=== PATIENT | female | born 1965 | race Caucasian/White ===

== ENCOUNTER 2024-08-31 08:15 | Inpatient (IN) | payer MEDICARE, SELFPAY ==
[2024-08-30] VITALS (15 sets, daily range): BP systolic 119–158; BP diastolic 67–93; BMI 28.4; BMI 36.2
[2024-08-30 12:17] LABS: % Basophils 0.3 % (0-2); % Eosinophils 0.1 % (0-6); % Immature Granulocytes 0.4 % (0-0.5); % Lymphocytes 14.5 % (20.5-51.1); % Monocytes 5.6 % (1.7-9.3); % Neutrophils 79.1 % (42.2-75.2); Absolute Basophils 0.1 10^3/uL (0-0.2); Absolute Immature Granulocytes 0.1 10^3/uL (0-0.05); Absolute Lymphocytes 2.2 10^3/uL (1.2-3.4); Absolute Monocytes 0.9 10^3/uL (0.1-0.6); Absolute Neutrophils 12.1 10^3/uL (1.4-6.5); Hematocrit 43.1 % (37.0-47.0); Hemoglobin 15.1 g/dL (12.0-16.0); Mean Corpuscular Hgb 30.3 pg (27.0-31.0); Mean Corpuscular Volume 86.4 fL (81.0-99.0); Mean Platelet Volume 7.9 fL (7.4-10.4); Nucleated Red Blood Cells % 0 %; Platelet Count 298 10^3/uL (130-400); Red Blood Cell Count 4.99 10^6/uL (4.20-5.40); Red Cell Dist. Width 13.7 % (11.5-14.5); White Blood Cell Count 15.3 10^3/uL (4.8-10.8)
[2024-08-30 12:24] LABS: ALT (SGPT) 30 U/L (0-35); AST (SGOT) 48 U/L (14-36); Albumin 4.5 g/dl (3.5-5.0); Alkaline Phosphatase 149 U/L (38-126); Blood Urea Nitrogen 17 mg/dl (7-17); Calcium 9.7 mg/dl (8.4-10.2); Carbon Dioxide 27 mmol/L (22-30); Chloride 105 mmol/L (98-107); Glucose 156 mg/dl (70-99); Potassium 3.9 mmol/L (3.5-5.1); Sodium 143 mmol/L (135-145); Total Bilirubin 0.5 mg/dl (0.2-1.3); Total Protein 7.5 g/dl (6.3-8.2); eGFR > 60.00
[2024-08-30 12:25] LABS: Alcohol 10 mg/dl
[2024-08-30] MEDS: NSS 1000 IV ×3 (12:35→19:54)
[2024-08-30 12:56] LABS: Venous Blood Gas HCO3 27.1 mmol/L (22-27); Venous Blood Gas O2 Sat % 98.4 %; Venous Blood Gas pCO2 39 mmHg (35-48); Venous Blood Gas pH 7.45 (7.32-7.43); Venous Blood Gas pO2 124 mmHg (30-50)
--- NOTE | 2024-08-30 12:58 | ED.GENMED ---
History of Present Illness
<Harshal Bashir, DO - Last Filed: 08/30/24 12:59>
General
Chief Complaint: Change in Mental Status
Time Seen by Provider: 08/30/24 12:11
<Kat Miles PA-C - Last Filed: 08/30/24 18:22>
General
Source: ambulance crew
Exam Limitations: altered mental status
History of Present Illness
History of Present Illness:
59yoF with a history of alcohol abuse, anxiety, and depression presenting via EMS for evaluation of altered mental status. Patient currently resides in a recovery house since October 2023. She is altered on arrival and history is obtained from staff
members at the recovery house. Patient apparently had a fall a week ago while at work and has been acting weird over the past week. She called out of work several times last due to vomiting and diarrhea. Staff members were concerned that she may
be drinking again. A staff member went to her room this morning to check on her and found her laying supine on the grounds with a blank stare and unresponsiveness. They found a bottle of empty rubbing alcohol under her bed as well as several empty
bottles of mouthwash in her room. Patient was apparently speaking with another resident this morning and was able to have a conversation but kept saying yes to all questions.
Past History
<Harshal Bashir, DO - Last Filed: 08/30/24 12:59>
Past History
ED Past Medical History: HTN, Hypothyroidism and Other (gout)
Phy Exam
<Kat Miles PA-C - Last Filed: 08/30/24 18:22>
General Physical Exam
General Presentation: no apparent distress
General Skin: warm and dry
General Habitus: normal
ENT Exam
ENT Exam: normocephalic
Eye Exam
Eye Exam: PERRL
Cardiovascular Exam
Cardiovascular Exam: tachycardia
Pulmonary Exam
Pulmonary Exam: lungs clear, no respiratory distress, no rales, no crackles and no rhonchi
Gastrointestinal Exam
Gastrointestinal Exam: non tender, soft and non distended
Neurological Exam
Neurological Exam: other (Opens eyes to voice and makes eye contact. Groans but does not answer questions. Does not follow commands. )
Skin Exam
Skin Exam: warm/dry
Course
<Harshal Bashir, DO - Last Filed: 08/30/24 12:59>
Orders/Labs/Results
Orders:
Orders
08/30/24 11:57
Electrocardiogram (*1) Urgent
Reason for Study: Fatigue / Weakness
EKG- Treatment ONCE
08/30/24 11:58
Alcohol Urgent
Complete Blood Count/With Diff Urgent
Comprehensive Metabolic Panel Urgent
Creatine Phosphokinase Urgent
Comment: ADD ON
Fentanyl, Urine Urgent
Magnesium Urgent
Comment: ADD ON
Osmolality, Random Urine Urgent
Date Specimen was Collected: 08/30/24
Time Specimen was Collected: 11:57
Comment: ADD ON
TSH Urgent
Comment: ADD ON
Urinalysis Urgent
Date Specimen was Collected: 08/30/24
Time Specimen was Collected: 11:57
Urine Drug Abuse Screen Urgent
Date Specimen was Collected: 08/30/24
Time Specimen was Collected: 11:57
Urine Microscopic Urgent
Date Specimen was Collected: 08/30/24
Time Specimen was Collected: 11:57
08/30/24 12:17
CT Head W/o Iv Contrast Urgent
Comment:
Reason For Exam: AMS
08/30/24 12:18
Add On- LAB Urgent
Tests Added?: TSH, magnesium
08/30/24 12:19
Cardiac Monitoring- Treatment ONCE
CR Chest Portable - 1 View Urgent
Comment:
Reason For Exam: AMS
Reason Study Needs to be Portable: Patient Unstable
08/30/24 12:20
0.9% Sodium Chloride 1000 ml [Nss] 1,000 ml IV BOLUS
08/30/24 12:28
Add On- LAB Urgent
Tests Added?: CK
Add On- LAB Urgent
Tests Added?: urinalysis
08/30/24 12:34
CT Cervical Spine W/o Iv Contr Urgent
Comment:
Reason For Exam: AMS
CT Pe/abd/pel W Urgent
Comment:
Reason For Exam: Tachycardia, AMS, vomiting
08/30/24 12:36
Ammonia Urgent
Lactate Level [Lactic Acid] Urgent
Salicylate Urgent
Serum Osmolality Urgent
Comment: ADD ON
Troponin I Urgent
Tylenol [Acetaminophen] Urgent
Venous Blood Gas Urgent
%Oxygen/Room Air: room air
Blood Culture Q30M
LUCAS Source: Blood/Venous
Specimen Description:
Blood Culture Q30M
LUCAS Source: Blood/Venous
Specimen Description:
08/30/24 12:45
Add On- LAB Urgent
Tests Added?: Urinalysis
08/30/24 14:20
Add On- LAB Urgent
Tests Added?: Urine osmo
Add On- LAB Urgent
Tests Added?: serum osmo
08/30/24 14:22
Acetone [B-Hydroxybutyrate] Urgent
08/30/24 14:55
Admit/Transfer Patient As Directed
Co-Sign Provider:
Level of Care: Observation services
Assign to:: Telemetry
Physician / Group: Yani Sigala
Diagnosis: change in mental status
Reason for Telemetry: Arrhythmia
Date to Stop Telemetry: 09/02/24
Time to Stop Telemetry: 11:00
PRN Pain Medication Management As Directed
May give lesser potent ordered pain med per pt: Yes
preference::
Protocol:: Medication orders for pain may be administered in a
manner that supports deferring to patient preference
when the pt is:
- Requesting an ordered lesser potent pain medication.
Least to most potent pain medications are defined
as: acetaminophen < NSAID < tramadol < opioids
(morphine, oxycodone, hydromorphone).
- Requesting a lesser dose of the same medication IF
ORDERED.
- Requesting a less intrusive route of administration
if both routes are prescribed by the provider (PO <
IV).
08/30/24 14:56
Code Status As Directed
Resuscitation Status: Full Code
08/30/24 14:58
0.9% Sodium Chloride 1000 ml [Nss] 1,000 ml IV BOLUS
09/02/24 11:00
DC Protocol for Telemetry ONCE
Abnormal Lab Results
08/30/24 08/30/24
11:58 12:36
WBC 15.3 H 10^3/uL
(4.8-10.8)
Abs Immat Gran (auto) 0.1 H 10^3/uL
(0-0.05)
Absolute Neuts (auto) 12.1 H 10^3/uL
(1.4-6.5)
Absolute Monos (auto) 0.9 H 10^3/uL
(0.1-0.6)
Neutrophils % 79.1 H %
(42.2-75.2)
Lymphocytes % 14.5 L %
(20.5-51.1)
VBG pH 7.45 H
(7.32-7.43)
VBG pO2 124 H mmHg
(30-50)
VBG HCO3 27.1 H mmol/L
(22-27)
Glucose 156 H mg/dl
(70-99)
Serum Osmolality 343 H mOsm/kg
(275-300)
AST 48 H U/L
(14-36)
Alkaline Phosphatase 149 H U/L
(38-126)
Ammonia < 9 L umol/L
(9-30)
Creatine Kinase 856 H U/L
(30-135)
Urine Ketones 3+ A
(Negative)
Urine Occult Blood 3+ A
(Negative)
Urine Bacteria Few A
(Negative)
Urine Albumin 3+ A
(Neg - Trace)
Salicylates < 1.0 L mg/dl
(2.0-20.0)
Acetaminophen < 10 L ug/ml
(10-30)
Ur Tricyclics Screen Positive H
(Negative)
U Methamphetamines Scrn Positive H
(Negative)
08/30/24 11:58
08/30/24 11:58
Vital Signs
Initial and Last Documented VS:
Initial Vital Signs
Pulse Resp Pulse Ox
123 11 97
08/30/24 11:59 08/30/24 11:59 08/30/24 11:59
Last Documented Vital Signs
Temp Pulse Resp BP Pulse Ox
98.6 F 142 22 119/93 97
08/30/24 18:01 08/30/24 18:01 08/30/24 18:01 08/30/24 18:01 08/30/24 18:01
<Kat Miles PA-C - Last Filed: 08/30/24 18:22>
Orders/Labs/Results
Orders:
Orders
08/30/24 11:57
Electrocardiogram (*1) Urgent
Reason for Study: Fatigue / Weakness
EKG- Treatment ONCE
08/30/24 11:58
Alcohol Urgent
Complete Blood Count/With Diff Urgent
Comprehensive Metabolic Panel Urgent
Creatine Phosphokinase Urgent
Comment: ADD ON
Fentanyl, Urine Urgent
Magnesium Urgent
Comment: ADD ON
Osmolality, Random Urine Urgent
Date Specimen was Collected: 08/30/24
Time Specimen was Collected: 11:57
Comment: ADD ON
TSH Urgent
Comment: ADD ON
Urinalysis Urgent
Date Specimen was Collected: 08/30/24
Time Specimen was Collected: 11:57
Urine Drug Abuse Screen Urgent
Date Specimen was Collected: 08/30/24
Time Specimen was Collected: 11:57
Urine Microscopic Urgent
Date Specimen was Collected: 08/30/24
Time Specimen was Collected: 11:57
08/30/24 12:17
CT Head W/o Iv Contrast Urgent
Comment:
Reason For Exam: AMS
08/30/24 12:18
Add On- LAB Urgent
Tests Added?: TSH, magnesium
08/30/24 12:19
Cardiac Monitoring- Treatment ONCE
CR Chest Portable - 1 View Urgent
Comment:
Reason For Exam: AMS
Reason Study Needs to be Portable: Patient Unstable
08/30/24 12:20
0.9% Sodium Chloride 1000 ml [Nss] 1,000 ml IV BOLUS
08/30/24 12:28
Add On- LAB Urgent
Tests Added?: CK
Add On- LAB Urgent
Tests Added?: urinalysis
08/30/24 12:34
CT Cervical Spine W/o Iv Contr Urgent
Comment:
Reason For Exam: AMS
CT Pe/abd/pel W Urgent
Comment:
Reason For Exam: Tachycardia, AMS, vomiting
08/30/24 12:36
Ammonia Urgent
Lactate Level [Lactic Acid] Urgent
Salicylate Urgent
Serum Osmolality Urgent
Comment: ADD ON
Troponin I Urgent
Tylenol [Acetaminophen] Urgent
Venous Blood Gas Urgent
%Oxygen/Room Air: room air
Blood Culture Q30M
LUCAS Source: Blood/Venous
Specimen Description:
Blood Culture Q30M
LUCAS Source: Blood/Venous
Specimen Description:
08/30/24 12:45
Add On- LAB Urgent
Tests Added?: Urinalysis
08/30/24 14:20
Add On- LAB Urgent
Tests Added?: Urine osmo
Add On- LAB Urgent
Tests Added?: serum osmo
08/30/24 14:22
Acetone [B-Hydroxybutyrate] Urgent
08/30/24 14:55
Admit/Transfer Patient As Directed
Co-Sign Provider:
Level of Care: Observation services
Assign to:: Telemetry
Physician / Group: Yani Sigala
Diagnosis: change in mental status
Reason for Telemetry: Arrhythmia
Date to Stop Telemetry: 09/02/24
Time to Stop Telemetry: 11:00
PRN Pain Medication Management As Directed
May give lesser potent ordered pain med per pt: Yes
preference::
Protocol:: Medication orders for pain may be administered in a
manner that supports deferring to patient preference
when the pt is:
- Requesting an ordered lesser potent pain medication.
Least to most potent pain medications are defined
as: acetaminophen < NSAID < tramadol < opioids
(morphine, oxycodone, hydromorphone).
- Requesting a lesser dose of the same medication IF
ORDERED.
- Requesting a less intrusive route of administration
if both routes are prescribed by the provider (PO <
IV).
08/30/24 14:56
Code Status As Directed
Resuscitation Status: Full Code
08/30/24 14:58
0.9% Sodium Chloride 1000 ml [Nss] 1,000 ml IV BOLUS
09/02/24 11:00
DC Protocol for Telemetry ONCE
Abnormal Lab Results
08/30/24 08/30/24
11:58 12:36
WBC 15.3 H 10^3/uL
(4.8-10.8)
Abs Immat Gran (auto) 0.1 H 10^3/uL
(0-0.05)
Absolute Neuts (auto) 12.1 H 10^3/uL
(1.4-6.5)
Absolute Monos (auto) 0.9 H 10^3/uL
(0.1-0.6)
Neutrophils % 79.1 H %
(42.2-75.2)
Lymphocytes % 14.5 L %
(20.5-51.1)
VBG pH 7.45 H
(7.32-7.43)
VBG pO2 124 H mmHg
(30-50)
VBG HCO3 27.1 H mmol/L
(22-27)
Glucose 156 H mg/dl
(70-99)
Serum Osmolality 343 H mOsm/kg
(275-300)
AST 48 H U/L
(14-36)
Alkaline Phosphatase 149 H U/L
(38-126)
Ammonia < 9 L umol/L
(9-30)
Creatine Kinase 856 H U/L
(30-135)
Urine Ketones 3+ A
(Negative)
Urine Occult Blood 3+ A
(Negative)
Urine Bacteria Few A
(Negative)
Urine Albumin 3+ A
(Neg - Trace)
Salicylates < 1.0 L mg/dl
(2.0-20.0)
Acetaminophen < 10 L ug/ml
(10-30)
Ur Tricyclics Screen Positive H
(Negative)
U Methamphetamines Scrn Positive H
(Negative)
08/30/24 11:58
08/30/24 11:58
Vital Signs
Initial and Last Documented VS:
Initial Vital Signs
Pulse Resp Pulse Ox
123 11 97
08/30/24 11:59 08/30/24 11:59 08/30/24 11:59
Last Documented Vital Signs
Temp Pulse Resp BP Pulse Ox
98.6 F 142 22 119/93 97
08/30/24 18:01 08/30/24 18:01 08/30/24 18:01 08/30/24 18:01 08/30/24 18:01
<Kat Miles PA-C - Last Filed: 08/30/24 18:22>
MDM/Problems Addressed
Differential Diagnosis Includes:
59yoF here for AMS. Patient currently resides in a recovery center. Staff found her unresponsive on the ground this morning. There was several bottles of empty mouthwash and rubbing alcohol in her room. She is tachycardic on exam with HR in the
120s. Sinus tachycardia on the monitor. Patient opens eyes and makes eye contact. No verbal response other than groaning and she does not follow commands. Differential diagnosis includes but is not limited to: Alcohol intoxication, alcohol
withdrawal, infectious process, CVA
Initial ED plan: Check broad including cardiac labs, CK, EtOH level, salicylate/Tylenol level, UDS, UA, EKG, and lewis scan. IV fluid bolus.
<Kat Miles PA-C - Last Filed: 08/30/24 18:22>
*EKG
Interpreted by ED Provider?: Yes
EKG Intrepretation Date: 08/30/24
Heart Rate: 124
Rate: tachycardiac
Rhythm: sinus and PVC's
[place]: left axis deviation
QRS Pattern: normal QRS
Ischemia: no ischemia
*Critical Care Note
Total Time (30-74mins, 75-104mins- exclusive of procedures): Not Applicable
<Kat Miles PA-C - Last Filed: 08/30/24 18:22>
Update Note
Update Note:
Imaging negative for acute findings. UDS is positive for TCAs and methamphetamines. EtOH level is 10. CK mildly elevated at 850. Leukocytosis noted with a white count of 15 which is nonspecific. Patient is more awake on reassessment and now
answers yes to questions but still does not follow commands. Will admit for further evaluation and management.
ED Attending Note
<Harshal Bashir DO - Last Filed: 08/30/24 12:59>
ED Attending Note
Patient seen and examined by attending physician: Yes
I performed the substantive portion of visit, reviewed & personally made and approve the management plan that is documented in note by myself or TEJ.: Yes
ED Attending Note:
I have seen and evaluated the patient with a [id number] encounter. I have spoken to the advance practicer provider and involved in the medical history, the physical exam, medical decision making.
Evaluation and management service: agree unless noted differently below.
Results interpretation: agree unless noted differently below.
Focused HPI: 59-year-old female presenting by EMS for altered mental status. She comes [facility]. Patient is a poor historian and altered
Physical exam: Tachycardic. Confused and altered. Not following commands
Medical Decision Making: Will obtain CT head and basic blood work. Patient found to have alcohol in her system. There is a potential for withdrawal. Patient will ultimately require admission
-
Portions of this chart may have been created with voice recognition software.� Occasional wrong word or��sound alike� substitutions may have occurred due to the inherent limitations of voice recognition software.
Discharge Plan
Departure
Patient Disposition: Admit
Date of Disposition: 08/30/24
Time of Disposition: 13:57
Presentation/result/management discussed w/ accepting MD/DO: Hospitalist
Discharge Problem:
Altered mental status
Interventions
Interventions:
*Risk Screen - Suicide Last Done: 08/30/24 12:11
*General Assessment Last Done: 08/30/24 12:11
*Neglect/Abuse Screening Last Done: 08/30/24 12:11
*ED- Fall Risk Assessment Last Done: 08/30/24 12:11
*ED COVID-19 Vaccine History Last Done: 08/30/24 12:11
*Nursing Disposition Last Done: 08/30/24 17:28
ED- Pulmonary Assessment Last Done: 08/30/24 12:11
ED-Psychological Assessment Last Done: 08/30/24 12:11
ED- Neurological Assessment Last Done: 08/30/24 12:11
ED- Cardiac Assessment Last Done: 08/30/24 12:11
ED Swallowing Screen Last Done: 08/30/24 12:11
Discharge Date and Time
Discharge Date/Time: 08/30/24 18:18
[2024-08-30 13:02] LABS: Amphetamines Negative (Negative); Barbiturates Negative (Negative); Benzodiazepines Negative (Negative); Buprenorphine Negative (Negative); Cocaine Negative (Negative); Marijuana Negative (Negative); Methadone Negative (Negative); Methamphetamines Positive (Negative); Opiates Negative (Negative); Phencyclidine Negative (Negative); Tricyclic Antidepressants Positive (Negative)
[2024-08-30 13:02] LABS: Ammonia < 9 umol/L (9-30); Lactic Acid 1.3 mmol/L (0.7-2.0)
[2024-08-30 13:03] LABS: Creatine Phosphokinase 856 U/L (30-135); Magnesium 1.6 mg/dl (1.6-2.3)
[2024-08-30 13:03] LABS: Acetaminophen < 10 ug/ml (10-30); Salicylate < 1.0 mg/dl (2.0-20.0)
[2024-08-30 13:08] LABS: Urine Albumin 3+ (Neg - Trace); Urine Bilirubin Negative (Negative); Urine Character Clear (Clear); Urine Color Yellow; Urine Glucose Negative (Negative); Urine Ketone 3+ (Negative); Urine Leukocyte Negative (Negative); Urine Nitrite Negative (Negative); Urine Occult Blood 3+ (Negative); Urine Urobilinogen Negative (Neg - 1+)
[2024-08-30 13:14] LABS: Troponin I 0.017 ng/ml
[2024-08-30 13:18] LABS: Urine Bacteria Few (Negative); Urine Hyaline Cast 0-2 /LPF (0-2); Urine Red Blood Cell 0-2 /HPF (0-2)
[2024-08-30 13:25] LABS: Fentanyl, Urine Negative (Negative)
--- NOTE | 2024-08-30 14:00 | EDRN ---
this RN noticed that the pts Sp02 dipped to 91% on RA, this RN notified the provider and placed the pt on 2L NC, Sp02 is currently 98%
--- NOTE | 2024-08-30 14:07 | HPS.HSE ---
Addendum entered and electronically signed by Yani Sigala DO 08/30/24 16:23:
I have seen and examined the patient. I have reviewed the history and physical and assessment and plan of care extensively with La Nean and I agree with the history and physical and assessment and plan of care as per below. The patient presents
altered and therefore is a difficult historian. She answers yes to all questions. She is a 59-year-old woman with past medical history significant for alcohol dependence and drug abuse currently living in a [facility]hab [facility], depression,
anxiety who presented to the emergency department secondary to altered mental status. She was found with empty bottles of isopropyl alcohol, and it is unclear if she was drinking this. It is all suspect suspected she may have been drinking ethyl
alcohol. Her urine drug screen is positive for TCA and methamphetamine and is unclear whether she has been using these medications.
In the emergency department she is hemodynamically stable with her blood pressure however is sinus tachycardia in the 110s to 120s.
Cardiovascular regular rate, tachycardia
she has no focal neurologic deficits.
Abdomen is soft nontender nondistended normoactive bowel sounds
Lungs are clear to auscultation bilaterally no wheezes rales rhonchi
Labs are remarkable for WBC of 15.3, glucose 156 lactate normal at 1.3, AST 48 ALT 30
Imaging reviewed is without acute process
# Altered mental status suspected due to alcohol intoxication and unknown drugs, possibly methamphetamine, though it is not clear whether this is isopropyl versus ethyl alcohol, her labs do not suggest isopropyl alcohol intoxication at this time.
Her EKG is notable for QTc of 453, her pH is 7.45
Admit to telemetry monitoring
-Continue IV fluid
-Continue close monitoring of laboratory
-Continue close monitoring of neurologic status
-Initiate thiamine and folate and alcohol withdrawal protocol
# Depression and anxiety
Continue home medications when able
Original Note:
Family Physician
-
Family Physician: NO INTERVIEW UNKNOWN
Chief Complaint
-
change in mental status
History of Present Illness
Patient is a 59-year-old female with past medical history significant for alcohol dependency, depression, anxiety and gout who presented to [facility] ED for evaluation of change in mental status. Patient unable to offer any history with current mental
status. HPI obtained from ED documentation. Patient resides in a recovery house since October 2023. This morning was found laying supine on the floor in bedroom with blank stare and was unresponsive to staff. Staff found an empty bottle of rubbing
alcohol under patients bed as well as several empty mouthwash bottles. Patient was speaking with another resident earlier in day and was only answering yes to all questions. Staff and other residents report patient has been acting strangely the past
week following a fall last week. She has reportedly called out of work multiple times since fall reporting vomiting and diarrhea, they had concerns she may have started drinking again. At assessment patient awake and only answers yes to anything
asked, does not follow commands from provider.
Medical History
Past Medical History
Past Medical History: Reports Other
Additional Past Medical History:
alcohol dependency
depression
anxiety
gout
Past Surgical History: Reports None (unable to obtain )
Social History
Unable to obtain full social history at this time due to: Other (altered mental status unable to obtain, has hx of alcohol abuse )
Family History
Family History: Unable to Obtain (altered mental status )
Allergies / Home Medications
Allergies reflects when Allergies were last updated in [facility].
Home Medications with original date entered in [facility]
Allergy/Medication List:
Allergies
Allergy/AdvReac Type Severity Reaction Status Date / Time
No Known Allergies Allergy Verified 03/26/23 07:35
Home Medications
clonidine HCl 0.1 mg tablet 0.1 mg PO BID 08/30/24
gabapentin 400 mg capsule 400 mg PO TID 08/30/24
naltrexone microspheres 380 mg intramuscular suspension,extended release (Vivitrol) 380 mg IM QMONTH 08/30/24
prazosin 2 mg capsule 2 mg PO HS 08/30/24
quetiapine 300 mg tablet 300 mg PO HS 08/30/24
ropinirole 2 mg tablet 2 mg PO HS 08/30/24
Review of Systems
-
Unable to obtain full review of systems at this time due to: Other (altered mental status )
Physical Exam
Vital Signs
Vital Signs
Temp Pulse Resp BP Pulse Ox
98.4 F 120 26 141/81 93
08/30/24 12:11 08/30/24 12:11 08/30/24 12:11 08/30/24 12:11 08/30/24 12:11
Physical Exam
General: Well Developed, Well Nourished, No Apparent Distress and Morbidly Obese
HEENT: NormoCephalic, Moist mucous membranes, Atraumatic, [place] Conjunctivae, Nose Appears Normal and Ears Appear Normal
Respiratory: Clear
Cardiac: S1/S2, Regular Rhythm and Tachycardia
Breast: Deferred by me
GI: Soft, Non Tender, Non Distended and Normal Bowel Sounds
Rectal: Deferred by Provider
Genito-urinary: Deferred by me
Musculoskeletal: No Clubbing, No Cyanosis and No Edema
Skin: IV/Catheter Site
Neuro: Awake and Other (does not follow commands )
Psych: Confused and Other (altered mental status )
Laboratory Results
-
08/30/24 11:58
08/30/24 11:58
Laboratory Results
Lactic Acid 1.3 mmol/L (0.7-2.0) 08/30/24 12:36
Total Bilirubin 0.5 mg/dl (0.2-1.3) 08/30/24 11:58
AST 48 U/L (14-36) H 08/30/24 11:58
ALT 30 U/L (0-35) 08/30/24 11:58
Alkaline Phosphatase 149 U/L (38-126) H 08/30/24 11:58
Troponin I 0.017 ng/ml 08/30/24 12:36
Data Reviewed
-
Diagnostic Radiology: Report Reviewed by me (CXR: 1. Perceived increase in pulmonary vasculature is likely related to suboptimal inspiration. Please correlate to exclude congestive heart failure. 2. There is malposition of the right shoulder which
may be positional. Please correlate with any right shoulder pain)
CT Scan: Report Reviewed by me (C-spine, Abd/Pel, Head (see reports))
Lab Data: Labs Reviewed by me (CK 856)
Impression/Plan
-
IMPRESSION/PLAN:
#change in mental status
#alcohol dependency
CK 856
Alcohol 10
CXR: 1. Perceived increase in pulmonary vasculature is likely related to suboptimal inspiration. Please correlate to exclude congestive heart failure.
2. There is malposition of the right shoulder which may be positional. Please correlate with any right shoulder pain
C-spine CT: There is degenerative disc disease at C5/6 and C6/7. There is no evidence of fracture
Abd/Pel CT: 1. There is no pulmonary embolism centrally. Segmental arteries are more difficult to assess due to limitations of contrast.
2. There is no evidence of a pulmonary mass or consolidation
3. There is fatty infiltration of the liver
4. There is diverticulosis but no evidence of diverticulitis
Head: Unremarkable CT of the brain
- Admit to telemetry
- IVF
#potential alcohol withdraw
Alcohol 10
- MSAS protocol
#alcohol dependency
#depression
#anxiety
- continue clonidine, Vivitrol, prazosin and quetiapine
#gout
Code status: full code
DVT Prophylaxis: Lovenox Sq
[2024-08-30 14:56] LABS: Osmolality Serum 343 mOsm/kg (275-300)
[2024-08-30 15:03] LABS: Osmolality Urine 746 mOsm/kg (300-900)
[2024-08-30 15:12] LABS: TSH 2.89 uIU/ml (0.47-4.68)
[2024-08-30] MEDS: MAGNESIUM SULFATE 50 IV (16:10)
--- NOTE | 2024-08-30 17:52 | EDRN ---
this RN called the receiving unit and notified them that paper report was going to be tubed up
[2024-08-30] MEDS: ATIVAN 2 MG IV ×3 (19:39→23:17)
[2024-08-30] MEDS: NSS (PRESERVATIVE FREE) 1 ML IV ×3 (19:40→23:16)
[2024-08-30] MEDS: LOVENOX 40 MG SC (20:33)
[2024-08-30] MEDS: REQUIP 2 MG PO (20:34)
[2024-08-30] MEDS: NEURONTIN 400 MG PO (20:34)
[2024-08-30] MEDS: THIAMINE INJECTION 200 MG IV (20:34)
[2024-08-30] MEDS: SEROQUEL 300 MG PO (20:34)
[2024-08-30] MEDS: CATAPRES 0.1 MG PO (20:35)
[2024-08-30] MEDS: MINIPRESS 2 MG PO (20:35)
[2024-08-30 22:09] LABS: B-Hydroxybutyrate 1.06 mmol/L (0.02-0.27)
[2024-08-30] MEDS: NEURONTIN PO (23:30)
--- NOTE | 2024-08-30 23:39 | W.PN.UPDATE ---
Update Note
Progress Note Update
RN communicated, patient MSAS score 14. Patient seen and evaluated. noted lethargic, restless, grunting, tachycardic, diaphoretic. Patient been receiving 2mg per Msas score, last dose few minutes ago. HR noted to be in 140's, BP 140's/70's EKG
noted, stat labs, Metoprolol 5mg IV x1 now. Transfer to IMU for closer observation.
[2024-08-30] MEDS: LOPRESSOR 5 MG IV (23:57)
[2024-08-31] VITALS (27 sets, daily range): BP systolic 109–157; BP diastolic 70–102; BMI 36.3
[2024-08-31 00:35] LABS: Hematocrit 39.7 % (37.0-47.0); Hemoglobin 13.6 g/dL (12.0-16.0); Mean Corp Hgb Conc. 34.3 g/dL (33.0-37.0); Mean Corpuscular Hgb 30.5 pg (27.0-31.0); Mean Platelet Volume 8.1 fL (7.4-10.4); Platelet Count 150 10^3/uL (130-400); Red Blood Cell Count 4.46 10^6/uL (4.20-5.40); Red Cell Dist. Width 14.4 % (11.5-14.5)
[2024-08-31] MEDS: NSS (PRESERVATIVE FREE) 1 ML IV (00:54)
[2024-08-31] MEDS: ATIVAN 2 MG IV ×4 (00:54→19:09)
--- NOTE | 2024-08-31 01:21 | W.PN.UPDATE ---
Update Note
Progress Note Update
Reported by the nursing staff that the patient is severely agitated and staff not able to reorient. Patient is screaming, keep rolling back and forth in bed and very restless. Patient received multiple doses of PRN Ativan 2mg q1hr PRN per protocol
but not effective. Phenobarbital added per protocol and Soft restraint applied for the patient`s safety. Patient aggression is increasing more, trying to be out of restraint continuously while screaming, staff not able to reorient. Will transfer the
patient to ICU level for agitation and sedation as needed. Discussed with the admitting physician.
[2024-08-31 01:46] LABS: Blood Urea Nitrogen 13 mg/dl (7-17); Calcium 8.5 mg/dl (8.4-10.2); Carbon Dioxide 23 mmol/L (22-30); Chloride 112 mmol/L (98-107); Estimated Creatinine Clearance 103 ml/min; Glucose 152 mg/dl (70-99); Magnesium 1.9 mg/dl (1.6-2.3); Potassium 4.1 mmol/L (3.5-5.1); Sodium 144 mmol/L (135-145); eGFR > 60.00
[2024-08-31] MEDS: PRECEDEX 100 IV ×4 (01:50→23:26)
[2024-08-31] MEDS: PHENOBARBITAL 104 MG IV (02:12)
--- NOTE | 2024-08-31 02:16 | PTCARENOTE ---
Received pt to ICU room 3371 from [facility] at 0041. Pt IMU level of care. Upon arrival, pt agitated, A/O to self only, restless, unable to reorient to reality. MSAS 14, medicated with lorazepam accordingly, see EMAR/MSAS flowsheet. Pt continued like
this, rolling back and forth in the bed, thrashing, kicking the footboard, screaming at the top of her lungs. House provider Evan RAYGOZA notified via [employer] about pt's behavior at 0107 and she came to bedside to assess pt/situation,
ordered Phenobarbital and 4 pt soft restraints. Ultimately pt was made ICU level of care by approximately 0145, Precedex ordered and started at around 0150. Another dose of 2mg Ativan given for MSAS of 15 (see EMAR). Phenobarb arrived from pharmacy
at around 0212 and was immediately started. Pt continues to scream, thrash, kick and is unable to reorient to reality. ST on monitor, 130s-150s with frequent PVCs. Maintaining SpO2 96% on RA.
--- NOTE | 2024-08-31 03:04 | PTCARENOTE ---
Pt received 3rd dose of 2mg Ativan since arrival to ICU at around 0255 and Precedex titrated up to 0.6mcg/kg/min. Up to that point pt had continued to kick, thrash and yell out. Left ankle soft restraint was broken from pt kicking violently. No skin
breakdown noted to LLE on assessment. At around 0300 pt was quiet and still and had her eyes closed. HR down to 120s. Pt started to desat (as low as 78%). Pt placed on 6LNC and repositioned and recovered to 94%. RR 24, BP WNL. Pt still with frequent
ectopy, at one point pt noted to be in trigeminy but now PVCs are more sporadic. Bed alarm activated. MSAS protocol ongoing.
[2024-08-31] MEDS: NSS 1000 IV ×3 (03:43→19:46)
[2024-08-31 05:26] LABS: Blood Urea Nitrogen 14 mg/dl (7-17); Carbon Dioxide 25 mmol/L (22-30); Chloride 112 mmol/L (98-107); Estimated Creatinine Clearance 103 ml/min; GGTP 44 U/L (12-43); Glucose 140 mg/dl (70-99); Phosphorus 2.8 mg/dl (2.5-4.5); Sodium 143 mmol/L (135-145); eGFR > 60.00
[2024-08-31] MEDS: ATIVAN 1 MG IV ×5 (06:18→20:10)
[2024-08-31 06:51] LABS: Hematocrit 33.8 % (37.0-47.0); Hemoglobin 11.6 g/dL (12.0-16.0); Mean Corp Hgb Conc. 34.3 g/dL (33.0-37.0); Mean Corpuscular Hgb 30.2 pg (27.0-31.0); Mean Platelet Volume 8.1 fL (7.4-10.4); Platelet Count 182 10^3/uL (130-400); Red Blood Cell Count 3.84 10^6/uL (4.20-5.40); Red Cell Dist. Width 14.3 % (11.5-14.5); White Blood Cell Count 7.4 10^3/uL (4.8-10.8)
--- NOTE | 2024-08-31 07:19 | CON.INTV ---
Addendum entered and electronically signed by Kathie Monte DO 08/31/24 16:41:
Doing well now, more appropriate
Will change taper to lower PO dose to start, as her risk seems less with her ingestion type/quantity
Wean precedex to off, reviewed with RN
Original Note:
Consultation
Consultation Request
Date/Time Consultation Requested: 08/31/24
Date/Time Consultation Performed: 08/31/24
Performing Provider: Lavell
Reason for Consultation: ICU
Medical History
-
History of Present Illness:
Patient is a 59-year-old female with previous history of alcohol dependence, drug abuse living in an alcohol rehab pathway house, depression/anxiety presenting to ER for altered mental status. She was found with empty bottles of isopropyl
alcohol (rubbing alcohol) and ethyl alcohol (mouthwash) bottles. Urine drug screen positive for TCA and methamphetamine. There is a calculated high serum osmolar gap. She is admitted to ICU for suspected alcohol withdrawal.
Past Medical History
Past Medical History: Other (see list below)
Family History
Family History: Unable to Obtain
Allergies / Home Medications
Allergies
Allergy/AdvReac Type Severity Reaction Status Date / Time
No Known Allergies Allergy Verified 03/26/23 07:35
Home Medications
�Medication �Instructions �Recorded �Confirmed �Last Taken �Type
clonidine HCl 0.1 mg tablet 0.1 mg PO BID 08/30/24 08/30/24 Unknown History
gabapentin 400 mg capsule 400 mg PO TID 08/30/24 08/30/24 Unknown History
naltrexone microspheres 380 mg 380 mg IM QMONTH 08/30/24 08/30/24 Unknown History
intramuscular suspension,extended
release (Vivitrol)
prazosin 2 mg capsule 2 mg PO HS 08/30/24 08/30/24 Unknown History
quetiapine 300 mg tablet 300 mg PO HS 08/30/24 08/30/24 Unknown History
ropinirole 2 mg tablet 2 mg PO HS 08/30/24 08/30/24 Unknown History
Review of Systems
-
Unable to Obtain full review of systems at this time due to: Acuity
Vitals / Labs / Diagnostic Testing
Vital Signs
Temp Pulse Resp BP Pulse Ox
97.9 F 122 37 145/89 98
08/31/24 00:53 08/31/24 06:00 08/31/24 06:00 08/31/24 06:00 08/31/24 06:00
Lab Data
08/31/24 04:42
08/31/24 04:42
Diagnostic Testing:
Physical Exam
-
HEENT: Normocephalic, Anicteric and Moist Mucous Membranes
Cardiovascular: S1/S2 and Regular Rhythm
Respiratory: Clear, Non-Labored Respirations and Other (snoring)
GI: Soft, Non Distended and Non Tender
Neurology: No Motor Deficits and Other (sedated/lethargic)
Skin: Warm, Dry and Good Color
General: Comfortable and Other (NAD)
Assessment
-
Patient is a 59-year-old female with previous history of alcohol dependence, drug abuse living in an alcohol rehab pathway house, depression/anxiety presenting to ER for altered mental status. She was found with empty bottles of isopropyl
alcohol (rubbing alcohol) and ethyl alcohol (mouthwash) bottles. Urine drug screen positive for TCA and methamphetamine. There is a calculated high serum osmolar gap. She is admitted to ICU for suspected alcohol withdrawal.
Acute isopropyl and ethyl alcohol intoxication/abuse
Serum osmolar gap
TME 2/2 ingestion, mild ETOH w/d
Hyperglycemia
UDS positive for TCAs and methamphetamine
Ketonuria with beta hydroxybutyrate positive-likely alcoholic ketoacidosis
Conditions present prior to admission
Alcohol abuse history
Depression/anxiety
Gout
Obesity, BMI 36
Hypothyroidism
Hypertension
Restless leg syndrome
Plan
There is current signs of metabolic encephalopathy/MS changes
ETOH use history, but patient ingested isopropyl and ethyl alcohol through rubbing alcohol and mouthwash
Serum Osm is raised significantly, ETOH level is low
Not showing profound acidosis
Not sure if phenobarb taper can be used for isopropyl ingestion, ethyl w/d will likely be mild
IV hydration is recommended, fomepizole does not appear indicated at this time
Pain/sedation: phenobarb protocol started but can likely lesson taper, observation
RASS goals: 0
Hemodynamically stable, not requiring pressors.
Cardiac history reviewed--HTN
No prior ECHO for review
Resume home meds if can tolerate
Monitor on telemetry
Oxygen needs: supplemental O2, PAP if needed
Likely has DEJAN, OHS
Prior history of lung disease: none
Supplemental O2 as indicated to maintain sats > 89%
CXR/CT reviewed indicating NAD, possible CHF
NPO, resume diet when able
Ice Delivery Driver recommendations
Aspiration precautions, HOB > 30 degrees
Speech therapy eval can be considered if at elevated risk
GI prophylaxis if indicated for mechanical ventilation >48 hours, prior history of GERD, stress ulcer formation in the critically ill
Creat at baseline, no history of renal disease
Consider renal consult if acidosis is present, early HD may be indicated for isopropyl ingestion
Void trials
Follow urine output, critical I/Os
Replete electrolytes as needed
No signs/symptoms suspicious for infectious etiology at this time
Observe off antibiotics for now
Follow fever trend, WBC count
CBC stable, no signs of bleeding or coagulopathy.
DVT prophylaxis as assessed based on risk, including mechanical SCDs
Can transfuse if indicated for Hb <7, plt < 10
No prior h/o diabetes
Monitor accuchecks PRN/SS coverage if needed
H/o hypothyroidism, can continue on home synthroid dose
We will follow
Diagnostic Data
Chest X-Ray: 08/30/24- . Perceived increase in pulmonary vasculature is likely related to suboptimal inspiration. Please correlate to exclude congestive heart failure.
2. There is malposition of the right shoulder which may be positional. Please correlate with any right shoulder pain
CT Scan: AP 08/30/24- 1. There is no pulmonary embolism centrally. Segmental arteries are more difficult to assess due to limitations of contrast.
2. There is no evidence of a pulmonary mass or consolidation
3. There is fatty infiltration of the liver
4. There is diverticulosis but no evidence of diverticulitis
HCT 08/30/24- Unremarkable CT of the brain
Echo:
PFT's:
Reports and relevant images were personally reviewed.
Critical Care time 55 mins -- The patient is admitted for acute critical illness for the treatment of vital organ failure and/or prevention of further life-threatening conditions. Total care includes time spent in review of history, physical exam,
medications, hemodynamic/ventilator parameters, laboratory data, imaging and discussion with house staff, pharmacy, respiratory therapy, web operations specialist, and nursing.
[2024-08-31] MEDS: THIAMINE INJECTION 200 MG IV ×2 (07:48→19:22)
[2024-08-31] MEDS: NEURONTIN PO (07:48)
[2024-08-31] MEDS: PHENOBARBITAL 97.5 MG IV ×2 (07:48→15:09)
[2024-08-31] MEDS: CATAPRES PO (07:48)
--- NOTE | 2024-08-31 08:23 | PTCARENOTE ---
pt received from previous rn- agitated, restless, oriented to self, in four point restraints, precedex gtt continues- see mar from previous rn. pt more calm. on 6LNC, sinus tach on monitor. all safety precautions in place. bed alarm on and
functioning.
--- NOTE | 2024-08-31 09:08 | W.PN.HOSP.TC ---
Addendum entered and electronically signed by Shanika Mendoza MD 08/31/24 16:28:
I saw and evaluated the patient independently. I reviewed the resident�s note and agree with findings and plan as documented by Dr. Rich.
GENERAL: well developed, well nourished, female minimally responsive but nonverbal
HEENT: NC/AT--face mask in place
HEART: regular rate and rhythm, +S1, +S2
LUNGS : coarse breath sounds bilaterally--harsh cough
ABDOM: soft, nontender, nondistended, + bowel sounds
EXT: no cyanosis, clubbing, or edema
NEUROLOGIC: sedated
Altered mental status suspected due alcohol withdrawal with + urine drug screen + ETOH level--moved to ICU due to agitation and need for precedex--Elevated GGT, alcohol 0.1, positive beta hydroxybutyrate, maybe be drinking again and likely
withdrawal--phenobarbital taper started--thiamine/folate--precedex as needed --MSAS protocol, ativan as needed--possible ingestion of isopropyl alcohol, mouthwash--elevated serum osmolal gap
Acute hypoxic respiratory insufficiency--requiring 5L O2--no PE on CT, no pna on CT--ABG reviewed--
New onset of cough--Covid/flu negative--Increased risk for aspiration pneumonia--WBC count now normal--hold on ABX--possible bronchitis--portable CXR with likely atelectasis from sedation--not clinically in heart failure or PNA--speech when more
awake
Anxiety/depression--Hold oral home medication due to sedation
Restless leg syndrome--Hold oral ropinirole and gabapentin due to sedation
DVT proph
code status --Full code
Original Note:
Today's Communication/Plan
-
Continue MSAS protocol
Repeat electrolytes
Follow urine output, I/Os
Wean off O2 as able
Assessment / Plan
Assessment / Plan
Impression
Altered mental status suspected due alcohol withdrawal with + urine drug screen
Acute hypoxic resp insufficiency
New onset of cough
Anxiety
Depression
Probable restless leg syndrome
PLAN
Altered mental status suspected due alcohol withdrawal with + urine drug screen
Admitted to ICU due to agitation and sedation
Hemodynamically stable-not requiring pressors
Elevated GGT, alcohol 0.1, positive beta hydroxybutyrate, maybe be drinking again and likely withdrawal.
Currently sedated with Precedex
Continue MSAS protocol
Continue thiamine, folic acid, phenobarb protocol.
On soft restraints
Acute hypoxic respiratory insufficiency
On 5 L of oxygen, wean as able
ABG shows respiratory acidosis with normal pH
Elevated serum osmolar gap
New onset of cough
Increased risk for aspiration pneumonia
Repeat portable chest x-ray
Check COVID and flu
Speech therapy eval can be considered
Anxiety/depression
Hold oral home medication due to sedation
Restless leg syndrome
Hold oral ropinirole and gabapentin d/t sedation
Full code
Anticipated Discharge: > 48 hours
Subjective/Interval History
-
Date of Service: August 31, 2024
Currently sedated on precedex, unable to obtain any history.
Objective Data
-
Labs:
Laboratory Results
08/31/24 08/31/24 08/31/24
00:15 01:16 04:42
WBC 9.0 7.4
Hgb 13.6 11.6 L
Hct 39.7 33.8 L
Plt Count 150 D 182 D
Sodium Cancelled 144 143
Potassium Cancelled 4.1 4.0
Chloride Cancelled 112 H 112 H
Carbon Dioxide Cancelled 23 25
BUN Cancelled 13 14
Creatinine Cancelled 0.7 0.7
Glucose Cancelled 152 H 140 H
Calcium Cancelled 8.5 8.0 L
Vital Signs:
Vital Signs
Temp Pulse Resp BP Pulse Ox
97.9 F 112 15 135/81 99
08/31/24 00:53 08/31/24 08:00 08/31/24 08:00 08/31/24 08:00 08/31/24 08:00
I&O
08/30/24 08/31/24 09/01/24
06:59 06:59 06:59
Intake Total 861.5 / 1031.3 339.6 / 339.6
Output Total 150 / 150
Balance 711.5 / 881.3 339.6 / 339.6
Review of Systems
-
Unable to obtain full review of systems at this time due to: Other (sedated )
Physical Exam
-
General: Other (sedated )
HEENT: Normocephalic and Atraumatic
Respiratory: Other (course breath sounds bilaterally )
Cardiac: S1/S2 and Tachycardic (HR 105)
GI: Soft, Nondistended and Normal Bowel Sounds
Musculoskeletal: No Edema
Skin: Warm and Dry
Neuro: Other (sedated, on soft restraints )
Data Reviewed
-
CT Scan: Image personally visualized and interpreted, Report Reviewed by me and Discussed with Physician
Labs: Labs Reviewed by me and Discussed with Physician
[2024-08-31] MEDS: NSS (PRESERVATIVE FREE) 0.5 ML IV ×2 (10:18→18:20)
[2024-08-31] MEDS: FOLVITE 50.2 MG IV (10:40)
[2024-08-31] MEDS: FOLVITE PO (10:40)
[2024-08-31 11:19] LABS: COVID-19 Antigen Negative (Negative)
--- NOTE | 2024-08-31 11:46 | PTCARENOTE ---
Dr. Mendoza at bedside, cxr and abg completed. pt rass 0 to -2, precedex titrated to 0.6mcg/kg/hr. pt turned and repositioned, oral care and incontinence care provided.
[2024-08-31 11:52] LABS: B.E. 2.9 mmol/L; HCO3 28.5 mmol/L (21-28); O2 Saturation % 98.6 % (94-98); PCO2 47 mmHg (32-35); PO2 150 mmHg (83-108); pH 7.39 (7.35-7.45)
--- NOTE | 2024-08-31 14:37 | PTCARENOTE ---
pt knows name, continues to be disoriented to place and time. continues on precedex gtt and ivf, leg restraints removed see flow sheet.
[2024-08-31] MEDS: NEURONTIN 400 MG PO ×2 (15:10→19:31)
[2024-08-31] MEDS: ATIVAN 1 MG PO (15:15)
--- NOTE | 2024-08-31 15:51 | W.PN.UPDATE ---
Update Note
Progress Note Update
patient is now responsive and is aking for water, she was also given oral medications. Will continue all other home meds. Start on clears.
--- NOTE | 2024-08-31 15:55 | PTCARENOTE ---
md aware pt more alert, pt able to say she's at [facility] and recognized visitors, does not know month or year. pt being cooperative, tolerating clears.
--- NOTE | 2024-08-31 16:22 | CM ---
Addendum entered by Brunilda Lama 08/31/24 16:27:
Patient CS worker indicated that patient mother in hospice dying and does not want her contacted. Patient worker indicated that son and are coming tomorrow, and see patient tomorrow and review options for contacts other than her mother at
this time. Patient lives at the [facility] but she will not be able to return there at discharge. Patient will need some time in either alcohol or psych per CS worker. Patient has a mood disorder per worker and significant depression at
this time due to mother condition. CM will continue to follow for discharge planning needs.
Plan;BCARES pending medical treatment plan
Original Note:
Patient seen at bedside with physicians. Patient not verbally responsive, when seen. Patient may benefit form BCARES when more alert. CM will call to family to complete assessment. CM will continue to follow for discharge planning needs.
Plan; pending medical treatment
--- NOTE | 2024-08-31 16:48 | PTOTSP ---
Speech Therapy Evaluation:
Pt presents with functional - mild oral phase characterized by slow but functional mastication and bolus formation of regular solids 2/2 edentulous state, however pt able to achieve adequate breakdown and bolus cohesion. No overt s/sx of aspiration
across PO trials. Pt remains at risk for aspiration and related complications given concern for breathing/swallow coordination and AMS 2/2 suspected alcohol withdrawal with + urine drug screen. Currently, CXR without PNA and WBC WNL. Pt passed 3oz
swallow screen.
Recommend:
1. Initiate Easy to Chew Diet with thin liquids
2. Medications as tolerated
3. Strict aspiration and reflux precautions
4. Close supervision
5. D/c oral diet if concerned for aspiration, worsening in chest imaging, or worsening in respiratory status
6. LASTEX OPERATOR to follow to monitor tolerance of diet
--- NOTE | 2024-08-31 17:05 | PTCARENOTE ---
pt more cooperative, precedex gtt weaned off, Dr. Monte aware and made aware of pts decrease urine output, bladder scan zero.
[2024-08-31] MEDS: LOVENOX 40 MG SC (17:06)
[2024-08-31] MEDS: NSS (PRESERVATIVE FREE) IV (18:17)
[2024-08-31] MEDS: ATIVAN IV (18:17)
--- NOTE | 2024-08-31 18:34 | PTCARENOTE ---
pt became increasingly restless and agitated, msas score increased, see flow sheet and mar. all safety precautions remain in place.
--- NOTE | 2024-08-31 19:00 | PTCARENOTE ---
Patient received in bed, restless, thrashing in bed, able to answer orientation questions. other contreras unable to be redirected. MSAS 13. Bigeminy and Trigeminy on monitor, with rates as high as 170, blood pressure as documented. Palpable pulses.
Abdomen obese with positive bowel sounds. Purewick maintained. #20 g in LAC with IVF infusing as ordered, #20 g in RAC flushed and patent. Bed alarm engaged. Safe environment maintained. Notified BRIM WELT SEWING MACHINE OPERATOR of findings, orders received
--- NOTE | 2024-08-31 19:19 | W.PN.UPDATE ---
Update Note
Progress Note Update
Patient agitated, restless, and having increased ectopy bigeminy. Will restart precedex gtt for sedation/withdrawal and obtain labs.
[2024-08-31] MEDS: CATAPRES 0.1 MG PO (19:22)
[2024-08-31] MEDS: MINIPRESS 2 MG PO (19:30)
[2024-08-31] MEDS: REQUIP 2 MG PO (19:30)
[2024-08-31] MEDS: SEROQUEL 300 MG PO (19:37)
[2024-08-31 20:30] LABS: Blood Urea Nitrogen 9 mg/dl (7-17); Calcium 8.4 mg/dl (8.4-10.2); Carbon Dioxide 27 mmol/L (22-30); Chloride 107 mmol/L (98-107); Estimated Creatinine Clearance 121 ml/min; Glucose 123 mg/dl (70-99); Magnesium 1.7 mg/dl (1.6-2.3); Potassium 3.4 mmol/L (3.5-5.1); Sodium 138 mmol/L (135-145); eGFR > 60.00
--- NOTE | 2024-08-31 21:09 | PTCARENOTE ---
Labs noted, orders received
[2024-08-31] MEDS: MAGNESIUM SULFATE 50 IV (21:26)
[2024-08-31] MEDS: KCL 270 MEQ IV (21:32)
[2024-08-31] MEDS: LUMINAL 64.8 MG PO (22:19)
[2024-09-01] VITALS (27 sets, daily range): BP systolic 108–191; BP diastolic 68–107; PULSE 102; BMI 37.6
[2024-09-01] MEDS: ATIVAN 1 MG IV ×4 (01:37→13:08)
[2024-09-01] MEDS: NSS (PRESERVATIVE FREE) 0.5 ML IV ×3 (01:38→13:09)
--- NOTE | 2024-09-01 01:45 | PTCARENOTE ---
MSAS 6, prn ativan given. Titrating precedex gtt down, safe environment maintained,
--- NOTE | 2024-09-01 04:33 | PTCARENOTE ---
CHG bath given, follows simple commands, labs drawn and sent
[2024-09-01 04:53] LABS: Hematocrit 32.1 % (37.0-47.0); Hemoglobin 10.7 g/dL (12.0-16.0); Mean Corp Hgb Conc. 33.3 g/dL (33.0-37.0); Mean Corpuscular Hgb 29.9 pg (27.0-31.0); Mean Corpuscular Volume 89.7 fL (81.0-99.0); Mean Platelet Volume 8.4 fL (7.4-10.4); Platelet Count 144 10^3/uL (130-400); Red Blood Cell Count 3.58 10^6/uL (4.20-5.40); Red Cell Dist. Width 14.2 % (11.5-14.5); White Blood Cell Count 6.5 10^3/uL (4.8-10.8)
[2024-09-01] MEDS: NSS 1000 IV (05:05)
[2024-09-01 05:21] LABS: Blood Urea Nitrogen 8 mg/dl (7-17); Calcium 8.5 mg/dl (8.4-10.2); Carbon Dioxide 26 mmol/L (22-30); Chloride 108 mmol/L (98-107); Estimated Creatinine Clearance 121 ml/min; Glucose 108 mg/dl (70-99); Potassium 4.2 mmol/L (3.5-5.1); Sodium 139 mmol/L (135-145); eGFR > 60.00
--- NOTE | 2024-09-01 07:17 | W.PN.INTV ---
Today's Communication / Plan
Recommendations
Phenobarb taper lowered, reviewed use of MSAS more, wean Precedex to off
Lowered seroquel dosing, increased frequency
New Maryanne, check EKG/ECHO, may need cards eval if ongoing
CPAP added
Can likely transfer to floors if stable off precedex
Assessment
-
Patient is a 59-year-old female with previous history of alcohol dependence, drug abuse living in an alcohol rehab pathway house, depression/anxiety presenting to ER for altered mental status. She was found with empty bottles of isopropyl
alcohol (rubbing alcohol) and ethyl alcohol (mouthwash) bottles. Urine drug screen positive for TCA and methamphetamine. There is a calculated high serum osmolar gap. She is admitted to ICU for suspected alcohol withdrawal.
Acute isopropyl and ethyl alcohol intoxication/abuse
Serum osmolar gap
TME 2/2 ingestion, mild ETOH w/d
Hyperglycemia
UDS positive for TCAs and methamphetamine
Ketonuria with beta hydroxybutyrate positive-likely alcoholic ketoacidosis
Bigeminy
Conditions present prior to admission
Alcohol abuse history
Depression/anxiety
Gout
Obesity, BMI 36
Hypothyroidism
Hypertension
Restless leg syndrome
Plan
There is current signs of metabolic encephalopathy/MS changes
ETOH use history, but patient ingested isopropyl and ethyl alcohol through rubbing alcohol and mouthwash
Serum Osm is raised significantly, ETOH level is low
Not showing profound acidosis
Not sure if phenobarb taper can be used for isopropyl ingestion, ethyl w/d will likely be mild
IV hydration is recommended, fomepizole does not appear indicated at this time
Pain/sedation: phenobarb protocol started but can likely lesson taper, MSAS continued
RASS goals: 0
Hemodynamically stable, not requiring pressors.
Cardiac history reviewed--HTN
No prior ECHO for review
Resume home meds if can tolerate, migdalia patel noted
Check ECHO
Monitor on telemetry
If continues, can consult cards
Oxygen needs: supplemental O2, PAP if needed
Likely has DEJAN, OHS
Prior history of lung disease: none
Supplemental O2 as indicated to maintain sats > 89%
CXR/CT reviewed indicating NAD, possible CHF
Add CPAP given bigeminy, sedation, slight CO2 increase
NPO, resume diet when able
Carpenter Assembler recommendations
Aspiration precautions, HOB > 30 degrees
Speech therapy eval can be considered if at elevated risk
GI prophylaxis if indicated for mechanical ventilation >48 hours, prior history of GERD, stress ulcer formation in the critically ill
Creat at baseline, no history of renal disease
Consider renal consult if acidosis is present, early HD may be indicated for isopropyl ingestion
Void trials
Follow urine output, critical I/Os
Replete electrolytes as needed
No signs/symptoms suspicious for infectious etiology at this time
Observe off antibiotics for now
Follow fever trend, WBC count
CBC stable, no signs of bleeding or coagulopathy.
DVT prophylaxis as assessed based on risk, including mechanical SCDs
Can transfuse if indicated for Hb <7, plt < 10
No prior h/o diabetes
Monitor accuchecks PRN/SS coverage if needed
H/o hypothyroidism, can continue on home synthroid dose
Diagnostic Data
Chest X-Ray: 08/30/24- 1. Perceived increase in pulmonary vasculature is likely related to suboptimal inspiration. Please correlate to exclude congestive heart failure.
2. There is malposition of the right shoulder which may be positional. Please correlate with any right shoulder pain
CT Scan: AP 08/30/24- 1. There is no pulmonary embolism centrally. Segmental arteries are more difficult to assess due to limitations of contrast.
2. There is no evidence of a pulmonary mass or consolidation
3. There is fatty infiltration of the liver
4. There is diverticulosis but no evidence of diverticulitis
HCT 08/30/24- Unremarkable CT of the brain
Echo:
PFT's:
Reports and relevant images were personally reviewed.
Critical Care time 35 mins -- The patient is admitted for acute critical illness for the treatment of vital organ failure and/or prevention of further life-threatening conditions. Total care includes time spent in review of history, physical exam,
medications, hemodynamic/ventilator parameters, laboratory data, imaging and discussion with house staff, pharmacy, respiratory therapy, corporate security manager, and nursing.
Subjective Dataa
Subjective Data
Date of Service:
Date of Service: September 01, 2024
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
Subjective:
More agitation noted at night, was resumed on precedex
MS now waxing/waning
More bigeminy noted on monitor
Objective Data
Data Reviewed
Vital Signs / I&O / Oxygen:
Vital Signs
Temp Pulse Resp BP Pulse Ox
97.5 F 92 15 149/88 99
09/01/24 03:20 09/01/24 06:00 09/01/24 06:00 09/01/24 06:00 09/01/24 06:00
Intake and Output
08/31/24 09/01/24 09/02/24
06:59 06:59 06:59
Intake Total 861.5 / 1031.3 3284.1 / 3284.1
Output Total 150 / 150 200 / 200
Balance 711.5 / 881.3 3084.1 / 3084.1
SaO2 99
Nasal Cannula flow liters per 2
minute
Physical Exam
General: Comfortable and Other (NAD)
HEENT: Normocephalic, Anicteric and Moist Mucous Membranes
Cardiovascular: S1-S2 and Regular Rhythm
Respiratory: Clear and Non-Labored Respirations
GI: Soft, Non Distended and Non Tender
Neurology: AO x 3, No Motor Deficits and Lethargic (but arousable)
Skin: Warm, Dry and Good Color
Labs/Micro/Reports
Lab Data
09/01/24 04:29
09/01/24 04:29
Laboratory Results
08/31/24
11:42
pH 7.39
pCO2 47 H
pO2 150 H
HCO3 28.5 H
O2 Delivery Level
Microbiology
08/30/24 12:36 Blood/Venous Blood Culture - Preliminary
No Growth in 24 hours- Final report to follow
08/30/24 12:36 Blood/Venous Blood Culture - Preliminary
No Growth in 24 hours- Final report to follow
08/31/24 10:39 Nasal Swab Influenza Types A & B (ANITA) - Final
Negative for Influenza A & B, NAAT
Negative results must be combined with clinical observations
and patient history.
Nucleic Acid Amplification test (NAAT)performed on the
[employer] platform.
[2024-09-01] MEDS: CATAPRES 0.1 MG PO ×2 (07:44→12:21)
[2024-09-01] MEDS: FOLVITE 1 MG PO (07:44)
[2024-09-01] MEDS: NEURONTIN 400 MG PO ×3 (07:44→21:30)
[2024-09-01] MEDS: LUMINAL 64.8 MG PO ×3 (07:44→21:30)
[2024-09-01] MEDS: THIAMINE INJECTION 200 MG IV ×2 (07:44→19:25)
--- NOTE | 2024-09-01 07:50 | PTCARENOTE ---
Assumed care of pt at 0715 following shift report. Pt awake and somewhat restless in bed, frequently asking for water. Pt is oriented to person, place and year. Following commands appropriately, forgetful at times. Bed exit alarm in use. Discussed
situation w/ pt and plan of care. Physical assessment completed as documented. Hygiene and comfort care provided. Pt able to drink large amounts of water and take PO meds w/o complication. Call snyder w/in pt reach and reinforcement provided.
--- NOTE | 2024-09-01 08:02 | W.PN.INTV ---
Today's Communication / Plan
Recommendations
Continue Phenobarbital taper, continue management of agitation as required, titrate down Precedex. Continue monitoring for any further worsening of mental status. Will get Echo, repeat blood gas in the afternoon, Head CT tomorrow if mental status
does not improve.
Assessment
-
Assessment:
59 yo female with a past medical history of alcohol use disorder, drug use, and anxiety/depression presented to the ED due to recent history of altered mental status. She was found to have suspected alcohol withdrawal and was admitted to the ICU for
further management of her agitation. Patient continued to feel agitated and was started on a Phenobarbital taper for her supposed alcohol withdrawal along with Precedex. Currently still very agitated and somnolent at times.
Acute isopropyl and ethyl alcohol intoxication/abuse
Serum osmolar gap
TME 2/2 ingestion, mild ETOH w/d
Hyperglycemia
UDS positive for TCAs and methamphetamine
Ketonuria with beta hydroxybutyrate positive-likely alcoholic ketoacidosis
Conditions present prior to admission:
Alcohol abuse history
Depression/anxiety
Gout
Obesity, BMI 36
Hypothyroidism
Hypertension
Restless leg syndrome
Plan:
EToH use history but patient was found with empty rubbing alcohol and mouthwash bottles
High Serum Osm without acidosis, repeat Osm
Agitated- started on Precedex last night, continue titrating down
Ativan prn available, follow MSAS protocol and give as needed
Restarted on po psych meds including Gabapentin, Quetiapine, Ropinirole
Change dose of Seroquel from 300mg to 50mg Q6
Continue with Phenobarbital taper
Thiamine injections 200mg IV every 12 hrs
Discontinuing IV Fluids
Most Recent RAAS: -1 -> Goal 0
MSAS: [address] tomorrow if mental status does not improve
History of Hypertension, only on Clonidine for management
Continues to be hypertensive, dose of Clonidine increased to 0.2mg BID, can help with potential withdrawal symptoms too
No past echo, ECHO ordered
EKG showed sinus tachy, telemetry shows consistent Ventricular Bigeminy and one instance of Vtach (Possibly due to movement during sleep)
Findings may be related to restarting Psych meds again, Seroquel dosing changed from 300mg to 50mg Q6
Will get updated EKG
Continue to monitor on telemetry
Cardiology consult tomorrow if any abnormalities seen on Echo
Was on supplemental oxygen -> weaned to RA
X-ray showed mild bibasilar atelectasis -> possibly due to recent supplemental O2
Blood gas showed increased pCO2+pO2, HCO3
No history of CHF/Lung disease, put probably has underlying sleep apnea
Will try her on CPAP tonight
Will repeat blood gas today
Continue monitoring and give supplemental O2 if Oww >89%
Regular diet, able to eat again
Aspiration precautions
Speech evaluation done yesterday-> easy to chew diet w/ thin liquids
PPI not indicated at this time
Creatinine continues to be at baseline (0.6)
Patient has been incontinent (1 incontinent urine)
Hypokalemia repleted, continue monitoring and repletion as needed
Hypomagnesia repleted, continue monitoring and repletion as needed
Will repeat serum Osm to see if any improvement
Leukocytosis has resolved, afebrile, no signs of infections
Continue monitoring, no abx indicated at this time
DVT prophylaxis with Lovenox
IVF causing dilutional anemia
Continue to monitor CBC
Transfusion if Hb<7, Plt <10
No history of Diabetes
Continue monitoring glucose/ Insulin SS if needed
Hypothyroidism history, not been on Levothyroxine at home (TSH at normal level)
Diagnostic Data
Chest X-Ray: 08/30/24- 1. Perceived increase in pulmonary vasculature is likely related to suboptimal inspiration. Please correlate to exclude congestive heart failure.
2. There is malposition of the right shoulder which may be positional. Please correlate with any right shoulder pain
CT Scan: AP 08/30/24- 1. There is no pulmonary embolism centrally. Segmental arteries are more difficult to assess due to limitations of contrast.
2. There is no evidence of a pulmonary mass or consolidation
3. There is fatty infiltration of the liver
4. There is diverticulosis but no evidence of diverticulitis
HCT 08/30/24- Unremarkable CT of the brain
Chest X-Ray: 08/31/24- Limited inspiration. Mild bibasilar atelectasis. New
Echo: None
Subjective Dataa
Subjective Data
Date of Service:
Date of Service: September 01, 2024
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
Subjective:
Patient had been very agitated overnight and was started on Precedex. Remained calm after receiving medications but still a bit agitated. When seen in the room this morning, was very somnolent and wanted to continue sleeping. Did not reveal any
complaints or issues at that time.
Review of Systems
Neuro: Other (Sleepy)
Genitourinary: Other (Incontinent)
Objective Data
Data Reviewed
Vital Signs / I&O / Oxygen:
Vital Signs
Temp Pulse Resp BP Pulse Ox
97.7 F 105 15 146/107 99
09/01/24 07:24 09/01/24 07:44 09/01/24 06:00 09/01/24 07:44 09/01/24 06:00
Intake and Output
08/31/24 09/01/24 09/02/24
06:59 06:59 06:59
Intake Total 861.5 / 1031.3 3284.1 / 3284.1
Output Total 150 / 150 200 / 200
Balance 711.5 / 881.3 3084.1 / 3084.1
SaO2 99
Nasal Cannula flow liters per 2
minute
Physical Exam
General: Comfortable
HEENT: Normocephalic and Anicteric
Cardiovascular: S1-S2 and Irregular Rhythm (Vetricular Bigeminy)
Respiratory: Clear, Non-Labored Respirations and Other (Nasal Cannula in place, on room air now)
GI: Soft, Non Distended and Non Tender
Neurology: Lethargic (Somnolent)
Skin: Warm
Labs/Micro/Reports
Lab Data
09/01/24 04:29
09/01/24 04:29
Laboratory Results
08/31/24
11:42
pH 7.39
pCO2 47 H
pO2 150 H
HCO3 28.5 H
O2 Delivery Level
Microbiology
08/30/24 12:36 Blood/Venous Blood Culture - Preliminary
No Growth in 24 hours- Final report to follow
08/30/24 12:36 Blood/Venous Blood Culture - Preliminary
No Growth in 24 hours- Final report to follow
08/31/24 10:39 Nasal Swab Influenza Types A & B (ANITA) - Final
Negative for Influenza A & B, NAAT
Negative results must be combined with clinical observations
and patient history.
Nucleic Acid Amplification test (NAAT)performed on the
[employer] platform.
--- NOTE | 2024-09-01 10:45 | PTCARENOTE ---
Pt ate 90% of breakfast tray w/ assistance. AM Hygiene completed. On RA POx 92-95%. 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 Weaning Precedex down. All systems reassessed w/o change in findings
--- NOTE | 2024-09-01 11:27 | PTCARENOTE ---
MSAS=8, pt restless, agitated, crying 'I'm detoxing so bad. I need my Ativan' When questioned, pt reports seeing people not in the room 'my son'- son not visiting at present. Ativan 1mg IV given per MSAS protocol.
--- NOTE | 2024-09-01 11:51 | PTCARENOTE ---
Pt resting quietly w/ eyes closed since administration of Ativan. Cpap placed per order by Resp Therapy and pt tolerating. POx 95%. EKG obtained per order.
--- NOTE | 2024-09-01 12:08 | PTCARENOTE ---
Placed requested return phone call to pt's significant other 'Danny' [phone]. No answer. Pt more awake now and not tolerating Cpap mask - removing it from her face stating 'I can't do this. I don't wear this' Attempted to explain use/benefit to
pt w/o change in pt's insistence that she will not wear the mask. Resp Therapy notified.
[2024-09-01] MEDS: SEROQUEL 50 MG PO ×3 (12:22→23:37)
[2024-09-01 12:39] LABS: Osmolality Serum 314 mOsm/kg (275-300)
--- NOTE | 2024-09-01 14:59 | CARDSERVDEF ---
Echocardiogram with Definity completed after protocol screening completed. Allergies verified.
Patent IV site: _Right arm 20 GPC site clear ____
IV site flushed with 0.9% NaCl pre and post administration.
Diluted bolus method utilized to enhance visualization of ventricular pedersen.
Total volume given: __2__ mL
Patient tolerated all procedures well without complications.
--- NOTE | 2024-09-01 15:44 | W.PN.HOSP.TC ---
Addendum entered and electronically signed by Shanika Mendoza MD 09/01/24 17:35:
I saw and evaluated the patient independently. I reviewed the resident�s note and agree with findings and plan as documented by Dr. Rich.
GENERAL: well developed, well nourished, female minimally responsive but nonverbal
HEENT: NC/AT
HEART: regular rate and rhythm, +S1, +S2
LUNGS: coarse breath sounds bilaterally--harsh cough
ABDOM: soft, nontender, nondistended, + bowel sounds
EXT: no cyanosis, clubbing, or edema
NEUROLOGIC: sedated
Altered mental status suspected due alcohol withdrawal with + urine drug screen + ETOH level--moved to ICU due to agitation and need for precedex--Elevated GGT, alcohol 0.1, positive beta hydroxybutyrate, maybe be drinking again and likely
withdrawal--phenobarbital taper started--thiamine/folate--precedex as needed --MSAS protocol, ativan as needed--possible ingestion of isopropyl alcohol, mouthwash--elevated serum osmolal gap--weaning precedex--will need psych, BCares
Acute hypoxic respiratory insufficiency--requiring 2L O2--no PE on CT, no pna on CT--ABG reviewed
New onset of cough--Covid/flu negative--Increased risk for aspiration pneumonia--WBC count now normal--hold on ABX--possible bronchitis--portable CXR with likely atelectasis from sedation--not clinically in heart failure or PNA--speech when more
awake--improved with tessalon
Anxiety/depression--Hold oral home medication due to sedation--restart as able
Restless leg syndrome--Hold oral ropinirole and gabapentin due to sedation--restart as able
DVT proph
code status --Full code
Original Note:
Today's Communication/Plan
-
Titrate down Precedex
Continue phenobarbital taper
repeat ABG
repeat electrolytes
follow BMP
Assessment / Plan
Assessment / Plan
Impression
Altered mental status suspected due alcohol withdrawal with + urine drug screen
Acute hypoxic resp insufficiency
New onset of cough
Anxiety
Depression
Probable restless leg syndrome
PLAN
Altered mental status suspected due alcohol withdrawal with + urine drug screen
Admitted to ICU due to agitation and sedation
Hemodynamically stable-not requiring pressors
Elevated GGT, alcohol 0.1, positive beta hydroxybutyrate, maybe be drinking again and likely withdrawal.
Titrate down Precedex
Consider Ativan for agitation
Continue MSAS protocol
Continue thiamine, folic acid, phenobarb protocol.
On soft restraints
Acute hypoxic respiratory insufficiency
On 5 L of oxygen, wean as able
ABG shows respiratory acidosis with normal pH
Elevated serum osmolar gap
repeat ABG
New onset of cough
Increased risk for aspiration pneumonia
Repeat chest x-ray shows bibasilar atelectasis
COVID and flu negative
Speech therapy eval - regular diet
Anxiety/depression
Hold oral home medication due to sedation
Restless leg syndrome
Hold oral ropinirole and gabapentin d/t sedation
Full code
Anticipated Discharge: > 48 hours
Subjective/Interval History
-
Date of Service: September 01, 2024
Patient was agitated overnight and she was restarted on Precedex.
Objective Data
-
Labs:
Laboratory Results
09/01/24 09/01/24
04:29 15:41
WBC 6.5
Hgb 10.7 L
Hct 32.1 L
Plt Count 144 D
HCO3 Pending
Sodium 139
Potassium 4.2
Chloride 108 H
Carbon Dioxide 26
BUN 8
Creatinine 0.6
Glucose 108 H
Calcium 8.5
Vital Signs:
Vital Signs
Temp Pulse Resp BP Pulse Ox
98.4 F 109 19 156/90 96
09/01/24 15:26 09/01/24 12:21 09/01/24 08:00 09/01/24 12:21 09/01/24 08:00
I&O
08/31/24 09/01/24 09/02/24
06:59 06:59 06:59
Intake Total 861.5 / 1031.3 3284.1 / 3391.5 1362.3 / 1362.3
Output Total 150 / 150 200 / 200 1600 / 1600
Balance 711.5 / 881.3 3084.1 / 3191.5 -237.7 / -237.7
Review of Systems
-
History Source: Patient (Sedated)
Physical Exam
-
General: Other (sedated )
HEENT: Normocephalic and Atraumatic
Respiratory: Clear to Auscultation; Negative Rhonchi or Crackles
Cardiac: Regular Rhythm and S1/S2
GI: Soft, Nontender and Nondistended
Musculoskeletal: No Edema
Data Reviewed
-
Labs: Labs Reviewed by me and Discussed with Physician
[2024-09-01 15:49] LABS: B.E. 8.1 mmol/L; HCO3 32.8 mmol/L (21-28); O2 Saturation % 97.7 % (94-98); PCO2 45 mmHg (32-35); PO2 94 mmHg (83-108); pH 7.47 (7.35-7.45)
[2024-09-01] MEDS: CATAPRES 0.2 MG PO (18:10)
[2024-09-01] MEDS: LOVENOX 40 MG SC (18:10)
--- NOTE | 2024-09-01 20:00 | PTCARENOTE ---
Patient received in bed, asleep, awakens to name. Oriented x3. NSR wth PVCs on monitor, afebrile, blood pressure as documented. Palpable pulses throughout. Lungs clear, pulse ox 95% on room air. Abdomen round obese with positive bowel sounds.
Ate 100% dinner. Pure wick maintained, draining clear yellow urine. #20 g in LAC, 20 g in right FA flushed and patent. Call snyder within reach, bed alarm engaged.
[2024-09-01] MEDS: MINIPRESS 2 MG PO (21:30)
[2024-09-01] MEDS: REQUIP 2 MG PO (21:30)
--- NOTE | 2024-09-01 23:42 | PTCARENOTE ---
Patient reassessed, remains calm and pleasant. No other changes in assessment
[2024-09-02] VITALS (20 sets, daily range): BP systolic 147–180; BP diastolic 81–103; BMI 37.5
[2024-09-02 04:21] LABS: % Basophils 0.4 % (0-2); % Eosinophils 3.2 % (0-6); % Immature Granulocytes 0.3 % (0-0.5); % Lymphocytes 27.6 % (20.5-51.1); % Monocytes 8.5 % (1.7-9.3); Absolute Eosinophils 0.2 10^3/uL (0-0.7); Absolute Monocytes 0.6 10^3/uL (0.1-0.6); Absolute Neutrophils 4.3 10^3/uL (1.4-6.5); Hematocrit 33.6 % (37.0-47.0); Hemoglobin 11.6 g/dL (12.0-16.0); Mean Corp Hgb Conc. 34.5 g/dL (33.0-37.0); Mean Corpuscular Hgb 30.4 pg (27.0-31.0); Mean Platelet Volume 8.8 fL (7.4-10.4); Nucleated Red Blood Cells % 0 %; Platelet Count 141 10^3/uL (130-400); Red Blood Cell Count 3.82 10^6/uL (4.20-5.40); Red Cell Dist. Width 13.8 % (11.5-14.5); White Blood Cell Count 7.2 10^3/uL (4.8-10.8)
[2024-09-02 04:45] LABS: Blood Urea Nitrogen 11 mg/dl (7-17); Calcium 8.9 mg/dl (8.4-10.2); Carbon Dioxide 29 mmol/L (22-30); Chloride 102 mmol/L (98-107); Estimated Creatinine Clearance 123 ml/min; Glucose 123 mg/dl (70-99); Magnesium 1.6 mg/dl (1.6-2.3); Sodium 136 mmol/L (135-145); eGFR > 60.00
[2024-09-02] MEDS: CATAPRES 0.2 MG PO ×2 (06:06→20:32)
[2024-09-02] MEDS: SEROQUEL 50 MG PO ×4 (06:06→23:28)
[2024-09-02] MEDS: MAGNESIUM SULFATE 50 IV (06:24)
--- NOTE | 2024-09-02 06:48 | PTCARENOTE ---
labs noted, Mg rider hanging, catapress given early
--- NOTE | 2024-09-02 07:19 | W.PN.INTV ---
Today's Communication / Plan
Recommendations
Better today, off precedex
Weaning w/d treatment
DEJAN with nocturnal hypoxemia, refusing CPAP
Cards eval for bigeminy-trigeminy
PT/OT, OOB
Transfer to floors, we will sign off upon transfer
Assessment
-
Patient is a 59-year-old female with previous history of alcohol dependence, drug abuse living in an alcohol rehab pathway house, depression/anxiety presenting to ER for altered mental status. She was found with empty bottles of isopropyl
alcohol (rubbing alcohol) and ethyl alcohol (mouthwash) bottles. Urine drug screen positive for TCA and methamphetamine. There is a calculated high serum osmolar gap. She is admitted to ICU for suspected alcohol withdrawal.
Acute isopropyl and ethyl alcohol intoxication/abuse
Serum osmolar gap
TME 2/2 ingestion, mild ETOH w/d
Hyperglycemia
UDS positive for TCAs and methamphetamine
Ketonuria with beta hydroxybutyrate positive-likely alcoholic ketoacidosis
Bigeminy
Conditions present prior to admission
Alcohol abuse history
Depression/anxiety
Gout
Obesity, BMI 36
Hypothyroidism
Hypertension
Restless leg syndrome
Plan
There is current signs of metabolic encephalopathy/MS changes
ETOH use history, but patient ingested isopropyl and ethyl alcohol through rubbing alcohol and mouthwash
Serum Osm is raised significantly, ETOH level is low
Not showing profound acidosis
Not sure if phenobarb taper can be used for isopropyl ingestion, ethyl w/d will likely be mild
IV hydration is recommended, fomepizole does not appear indicated at this time
Pain/sedation: phenobarb protocol started but can likely lesson taper, MSAS continued--off precedex
RASS goals: 0
Hemodynamically stable, not requiring pressors.
Cardiac history reviewed--HTN
No prior ECHO for review
Resume home meds if can tolerate, new amanda noted
Check ECHO--reviewed normal
Monitor on telemetry
Trigeminy noted now, will consult cards
Oxygen needs: supplemental O2, PAP if needed
Likely has DEJAN, OHS
Prior history of lung disease: none
Supplemental O2 as indicated to maintain sats > 89%
CXR/CT reviewed indicating NAD, possible CHF
Continue CPAP given bigeminy, sedation, slight CO2 increase-she has refused
Diet advancement
Abstract Clerk recommendations
Aspiration precautions, HOB > 30 degrees
Speech therapy eval can be considered if at elevated risk
GI prophylaxis if indicated for mechanical ventilation >48 hours, prior history of GERD, stress ulcer formation in the critically ill
Creat at baseline, no history of renal disease
Consider renal consult if acidosis is present, early HD may be indicated for isopropyl ingestion
Void trials
Follow urine output, critical I/Os
Replete electrolytes as needed
No signs/symptoms suspicious for infectious etiology at this time
Observe off antibiotics for now
Follow fever trend, WBC count
CBC stable, no signs of bleeding or coagulopathy.
DVT prophylaxis as assessed based on risk, including mechanical SCDs
Can transfuse if indicated for Hb <7, plt < 10
No prior h/o diabetes
Monitor accuchecks PRN/SS coverage if needed
H/o hypothyroidism, can continue on home synthroid dose
Diagnostic Data
Chest X-Ray: 08/30/24- 1. Perceived increase in pulmonary vasculature is likely related to suboptimal inspiration. Please correlate to exclude congestive heart failure.
2. There is malposition of the right shoulder which may be positional. Please correlate with any right shoulder pain
CT Scan: AP 08/30/24- 1. There is no pulmonary embolism centrally. Segmental arteries are more difficult to assess due to limitations of contrast.
2. There is no evidence of a pulmonary mass or consolidation
3. There is fatty infiltration of the liver
4. There is diverticulosis but no evidence of diverticulitis
HCT 08/30/24- Unremarkable CT of the brain
Echo:
PFT's:
Reports and relevant images were personally reviewed.
Critical Care time 35 mins -- The patient is admitted for acute critical illness for the treatment of vital organ failure and/or prevention of further life-threatening conditions. Total care includes time spent in review of history, physical exam,
medications, hemodynamic/ventilator parameters, laboratory data, imaging and discussion with house staff, pharmacy, respiratory therapy, restaurant managing partner, and nursing.
Subjective Dataa
Subjective Data
Date of Service:
Date of Service: September 02, 2024
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
Subjective:
No events ON, remains on low O2
Refused CPAP
Off gtts
Objective Data
Data Reviewed
Vital Signs / I&O / Oxygen:
Vital Signs
Temp Pulse Resp BP Pulse Ox
98.2 F 106 18 175/94 97
09/02/24 04:00 09/02/24 04:00 09/02/24 04:00 09/02/24 04:00 09/02/24 04:00
Intake and Output
09/01/24 09/02/24 09/03/24
06:59 06:59 06:59
Intake Total 3284.1 / 3391.5 1762.3 / 1762.3
Output Total 200 / 200 3700 / 3700
Balance 3084.1 / 3191.5 -1937.7 / -1937.7
SaO2 97
Nasal Cannula flow liters per 2
minute
Physical Exam
General: Comfortable and Other (NAD)
HEENT: Normocephalic, Anicteric and Moist Mucous Membranes
Cardiovascular: S1-S2 and Regular Rhythm
Respiratory: Clear and Non-Labored Respirations
GI: Soft, Non Distended and Non Tender
Neurology: AO x 3, No Motor Deficits and Lethargic (but arousable)
Skin: Warm, Dry and Good Color
Labs/Micro/Reports
Lab Data
09/02/24 04:13
09/02/24 04:13
Laboratory Results
09/01/24
15:41
pH 7.47 H
pCO2 45 H
pO2 94
HCO3 32.8 H
O2 Delivery Level
Microbiology
08/30/24 12:36 Blood/Venous Blood Culture - Preliminary
No Growth in 48 hours- Final report to follow
08/30/24 12:36 Blood/Venous Blood Culture - Preliminary
No Growth in 48 hours- Final report to follow
08/31/24 10:39 Nasal Swab Influenza Types A & B (ANITA) - Final
Negative for Influenza A & B, NAAT
Negative results must be combined with clinical observations
and patient history.
Nucleic Acid Amplification test (NAAT)performed on the
[employer] platform.
--- NOTE | 2024-09-02 07:19 | W.PN.INTV ---
Today's Communication / Plan
Recommendations
Patient is off the Precedex and feeling better. Cleared to be downgraded from ICU level care.
Assessment
-
Assessment:
59 yo female with a past medical history of alcohol use disorder, drug use, and anxiety/depression presented to the ED due to recent history of altered mental status. She was found to have suspected alcohol withdrawal and was admitted to the ICU for
further management of her agitation. Patient continued to feel agitated and was started on a Phenobarbital taper for her supposed alcohol withdrawal along with Precedex. Currently, patient has been feeling better and off the Precedex. Patient stable
enough to be downgraded from ICU level.
Acute isopropyl and ethyl alcohol intoxication/abuse
Serum osmolar gap
TME 2/2 ingestion, mild ETOH w/d
Hyperglycemia
UDS positive for TCAs and methamphetamine
Ketonuria with beta hydroxybutyrate positive-likely alcoholic ketoacidosis
Conditions present prior to admission:
Alcohol abuse history
Depression/anxiety
Gout
Obesity, BMI 36
Hypothyroidism
Hypertension
Restless leg syndrome
Plan:
EToH use history but patient was found with empty rubbing alcohol and mouthwash bottles
High Serum Osm without acidosis, repeat Osm shows continued significant gap (27) but better than before
Agitated- Precedex tapered down, continue managing with Ativan as needed
Stable to be downgraded from ICU level
Ativan prn available, follow MSAS protocol and give as needed
Restarted on po psych meds including Gabapentin, Quetiapine, Ropinirole
Changed dose of Seroquel from 300mg hs to 50mg Q6
Continue with Phenobarbital taper, received 5 doses of 64.8 mg
Thiamine injections 200mg IV every 12 hrs
Most Recent RAAS: -1 -> Goal 0
MSAS: 1 (Due to Tachycardia)
History of Hypertension, only on Clonidine for management
Continues to be hypertensive, dose of Clonidine increased to 0.2mg BID, can help with potential withdrawal symptoms too
ECHO showed no abnormalities
EKG showed sinus tachy with PVC, telemetry shows consistent Ventricular Bigeminy and Trigeminy and one instance of Vtach (Possibly due to movement during sleep)
Findings may be related to restarting Psych meds again, Seroquel dosing changed from 300mg to 50mg Q6
Continue to monitor on telemetry
Cardiology consult today, input appreciated
Was on supplemental oxygen -> weaned to RA
X-ray showed mild bibasilar atelectasis -> possibly due to recent supplemental O2
No history of CHF/Lung disease, put probably has underlying sleep apnea
Refused CPAP last night, but willing to try CPAP tonight
Repeat blood gas showed increased pH, increased pCO2, increased HCO3 -> Respiratory Acidosis with Metabolic compensation
Continue monitoring and give supplemental O2 as needed
Regular diet, able to eat again
Aspiration precautions
Speech evaluation -> easy to chew diet w/ thin liquids
PPI not indicated at this time
Creatinine continues to be at baseline (0.6)
Patient has been incontinent (1 incontinent urine)
Hypokalemia repleted, continue monitoring and repletion as needed
Hypomagnesia repleted, continue monitoring and repletion as needed
Repeat serum Osm showed marked improvement (gap:44->27), but still elevated
Leukocytosis has resolved, afebrile, no signs of infections
Blood cx negative for growth
Continue monitoring, no abx indicated at this time
DVT prophylaxis with Lovenox
IVF causing dilutional anemia
Continue to monitor CBC
Transfusion if Hb<7, Plt <10
No history of Diabetes
Continue monitoring glucose/ Insulin SS if needed
Hypothyroidism history, not been on Levothyroxine at home (TSH at normal level)
Diagnostic Data
Chest X-Ray: 08/30/24- 1. Perceived increase in pulmonary vasculature is likely related to suboptimal inspiration. Please correlate to exclude congestive heart failure.
2. There is malposition of the right shoulder which may be positional. Please correlate with any right shoulder pain
CT Scan: AP 08/30/24- 1. There is no pulmonary embolism centrally. Segmental arteries are more difficult to assess due to limitations of contrast.
2. There is no evidence of a pulmonary mass or consolidation
3. There is fatty infiltration of the liver
4. There is diverticulosis but no evidence of diverticulitis
HCT 08/30/24- Unremarkable CT of the brain
Chest X-Ray: 08/31/24- Limited inspiration. Mild bibasilar atelectasis. New
Echo: Technically difficult study
Normal left ventricular size, wall thickness and systolic function. No gross
regional wall motion abnormalities are seen. Estimated ejection fraction is 60-
65%. Normal diastolic function.
Grossly normal right ventricular size and function.
No significant valvular pathology observed within limits of the study quality
Subjective Dataa
Subjective Data
Date of Service:
Date of Service: September 02, 2024
Chief Complaint: Home [employer] Disclosure Act Specialist Follow Up
Subjective:
Patient has been feeling well, reports no adverse events overnight. States that she has been feeling much better and less agitated. Reports no fever, chills, headaches, chest pain, shortness of breath. Says that her breathing has been much better
and continue to stay on room air.
Review of Systems
General: Other (no acute distress)
HEENT: Other (none)
Cardiopulmonary: Other (none)
GI: Other (none)
Neuro: Other (none)
Genitourinary: Other (none)
Objective Data
Data Reviewed
Vital Signs / I&O / Oxygen:
Vital Signs
Temp Pulse Resp BP Pulse Ox
98.2 F 106 18 175/94 97
09/02/24 04:00 09/02/24 04:00 09/02/24 04:00 09/02/24 04:00 09/02/24 04:00
Intake and Output
09/01/24 09/02/2425
06:59 06:59 06:59
Intake Total 3284.1 / 3391.5 1762.3 / 1762.3
Output Total 200 / 200 3700 / 3700
Balance 3084.1 / 3191.5 -1937.7 / -1937.7
SaO2 97
Nasal Cannula flow liters per 2
minute
Physical Exam
General: Comfortable and Other (NAD)
HEENT: Normocephalic, Anicteric and Moist Mucous Membranes
Cardiovascular: S1-S2 and Irregular Rhythm (Ventricular bigeminy, trigeminy)
Respiratory: Clear and Non-Labored Respirations
GI: Soft, Non Distended and Non Tender
Neurology: AO x 3, No Motor Deficits and Lethargic (More awake than before)
Skin: Warm and Good Color
Labs/Micro/Reports
Lab Data
09/02/24 04:13
09/02/24 04:13
Laboratory Results
09/01/24
15:41
pH 7.47 H
pCO2 45 H
pO2 94
HCO3 32.8 H
O2 Delivery Level
Microbiology
08/30/24 12:36 Blood/Venous Blood Culture - Preliminary
No Growth in 48 hours- Final report to follow
08/30/24 12:36 Blood/Venous Blood Culture - Preliminary
No Growth in 48 hours- Final report to follow
08/31/24 10:39 Nasal Swab Influenza Types A & B (ANITA) - Final
Negative for Influenza A & B, NAAT
Negative results must be combined with clinical observations
and patient history.
Nucleic Acid Amplification test (NAAT)performed on the
[employer] platform.
[2024-09-02] MEDS: THIAMINE INJECTION 200 MG IV (07:57)
--- NOTE | 2024-09-02 08:03 | PTCARENOTE ---
recd pt handoff bedside, verbalizing doing okay today. calm, cooperative, oriented. Mag rider infusing, site intact. awaiting breakfast, presently resting unless disturbed.
[2024-09-02] MEDS: LUMINAL 64.8 MG PO ×2 (08:37→15:38)
[2024-09-02] MEDS: NEURONTIN 400 MG PO ×3 (08:37→22:14)
[2024-09-02] MEDS: FOLVITE 1 MG PO (08:37)
--- NOTE | 2024-09-02 11:01 | W.PN.HOSP.TC ---
Addendum entered and electronically signed by Shanika Mendoza MD 09/02/24 16:17:
I saw and evaluated the patient independently. I reviewed the resident�s note and agree with findings and plan as documented by Dr. Rich.
GENERAL: well developed, well nourished, female minimally responsive but nonverbal
HEENT: NC/AT
HEART: regular rate and rhythm, +S1, +S2
LUNGS: coarse breath sounds bilaterally--harsh cough
ABDOM: soft, nontender, nondistended, + bowel sounds
EXT: no cyanosis, clubbing, or edema
NEUROLOGIC: sedated
Altered mental status suspected due alcohol withdrawal with + urine drug screen + ETOH level--moved to ICU due to agitation and need for precedex--Elevated GGT, alcohol 0.1, positive beta hydroxybutyrate, maybe be drinking again and likely
withdrawal--phenobarbital taper started--thiamine/folate--precedex as needed --MSAS protocol, ativan as needed-- ingestion of isopropyl alcohol, mouthwash--elevated serum osmolal gap--weaning precedex--apprec psych, BCares
Acute hypoxic respiratory failure to insufficiency--requiring 6L to 2L to 1L O2--no PE on CT, no pna on CT--ABG reviewed
New onset of cough--Covid/flu negative--Increased risk for aspiration pneumonia--WBC count now normal--hold on ABX--possible bronchitis, all resolved--portable CXR with likely atelectasis from sedation--not clinically in heart failure or PNA--speech
when more awake--improved with tessalon
Anxiety/depression--Hold oral home medication due to sedation--restart as able
Restless leg syndrome--Hold oral ropinirole and gabapentin due to sedation--restart as able
DVT proph
code status --Full code
Original Note:
Today's Communication/Plan
-
Downgraded to med/surg
Continue MSAS protocol
Off Precedex, patient is alert and oriented.
Replete electrolytes
Consult psychiatry.
Consult cardiology
Assessment / Plan
Assessment / Plan
Impression
Altered mental status suspected due alcohol withdrawal with + urine drug screen
Acute hypoxic resp insufficiency
New onset of cough
Anxiety
Depression
Probable restless leg syndrome
PLAN
Altered mental status suspected due alcohol withdrawal with + urine drug screen
Admitted to ICU due to agitation and sedation
Hemodynamically stable-not requiring pressors
Elevated serum osmolar gap
Elevated GGT, alcohol 0.1, positive beta hydroxybutyrate, maybe be drinking again and likely withdrawal.
Continue MSAS protocol. On soft restraints
Continue thiamine, folic acid, phenobarb protocol.
Off sedation, patient is alert and oriented
Downgrade to med/surg
BCares for alcohol dependence.
Consult psych
Acute hypoxic respiratory insufficiency
On 2 L of oxygen, wean as able
ABG shows respiratory acidosis with normal pH
Elevated serum osmolar gap
Sinus tachycardia
EKG shows frequent premature ventricular complexes
Persistently tachycardic since admission
Consult cardiology
New onset of cough--improved/resolved
Increased risk for aspiration pneumonia
Repeat chest x-ray shows bibasilar atelectasis
COVID and flu negative
Speech therapy eval - regular diet
Anxiety/depression
Continue home medications
Restless leg syndrome
Continue home medications
Full code
Anticipated Discharge: > 48 hours
Subjective/Interval History
-
Date of Service: September 02, 2024
Patient has been off sedation from yesterday afternoon. She is competent and AOX3.
Objective Data
-
Labs:
Laboratory Results
09/02/24
04:13
WBC 7.2
Hgb 11.6 L
Hct 33.6 L
Plt Count 141
Sodium 136
Potassium 4.0
Chloride 102
Carbon Dioxide 29
BUN 11
Creatinine 0.6
Glucose 123 H
Calcium 8.9
Vital Signs:
Vital Signs
Temp Pulse Resp BP Pulse Ox
98.1 F 99 17 178/97 97
09/02/24 08:26 09/02/24 08:00 09/02/24 08:00 09/02/24 08:00 09/02/24 08:00
I&O
09/01/24 09/02/24 09/03/24
06:59 06:59 06:59
Intake Total 3284.1 / 3391.5 1762.3 / 1762.3
Output Total 200 / 200 3700 / 3700
Balance 3084.1 / 3191.5 -1937.7 / -1937.7
Review of Systems
-
History Source: Patient
All other systems: Reviewed and negative
Physical Exam
-
General: No Apparent Distress and Comfortable
HEENT: Normocephalic and Atraumatic
Respiratory: Clear to Auscultation; Negative Wheezes, Rales, Rhonchi or Crackles
Cardiac: Regular Rhythm and S1/S2
GI: Soft, Nontender and Nondistended
Musculoskeletal: No Edema
Neuro: Awake, Alert and Oriented
Psych: Calm
Data Reviewed
-
Labs: Labs Reviewed by me and Discussed with Physician
--- NOTE | 2024-09-02 11:42 | CON.CAR ---
Addendum entered and electronically signed by Grey Batista MD 09/02/24 16:11:
I saw and examined the patient.
The Inspector Bicycle's note was reviewed and I agree with the note.
Comment:
GEN: No distress, awake, Ox3
HEENT: supple, anicteric, mmm
LUNGS: CTA, no wheezes/rales
CV: Reg with ectopy, S1/S2, 1/6 syst LSB,
ABD: soft, BS+, NT/ND
EXT: No edema
NEURO: Gross non-focal
SKIN: No rash
PLan:
59-year-old female with past medical history of alcohol abuse and isopropyl alcohol ingestion presents with alcohol withdrawal and severe agitation. Patient was found to have frequent PVCs on exam. She denies any chest pains, shortness of breath,
palpitations, or history of coronary artery disease.
Echo with preserved ejection fraction and no significant valve disease.
EKG with sinus rhythm with left anterior fascicular block. Electrolytes with mild hypomagnesemia and normal potassium.
Troponin is normal.
At this point I would make no changes. I would focus on her recovery from alcohol withdrawal at this point and follow her on telemetry. I would hold off on ischemic evaluation at this time.
Continue supportive care.
Original Note:
Consultation
Consultation Request
Date/Time Consultation Requested: 09/02/24
Date/Time Consultation Performed: 09/02/24
Requesting Provider: Dr. Mendoza
Performing Provider: Dr. Batista
Reason for Consultation: Frequent PVCs
Medical History
-
History of Present Illness:
Patient came to the ER on Friday with lethargy and change in mental status and was admitted with EtOH use disorder and isopropyl alcohol ingestion and cardiology is now consulted for PVCs and bigeminy. Patient was previously in the ER 03/2023 with
EtOH use disorder and was sent to rehab at that time. 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 She said that a week ago she had a trip and fall
and landed on her right side and although she was injured she was incredibly embarrassed and stood up quickly and pretended like nothing was wrong. She was also afraid that if she told anyone that she fell and was hurt that she would be fired. She
had increasing pain and she says to numb the pain she began drinking alcohol again. She also has a lot of stress in her family as her mother is on hospice and she feels like she cannot be part of the process. Patient was admitted after she was
found on the floor of her sober living home surrounded by bottles of mouthwash and a bottle of isopropyl alcohol. Shortly after admission patient was moved to ICU and placed on a Precedex drip for withdrawal and severe agitation, but that is off
now and she is able to communicate with me and is tearful at times. Patient denies any palpitations. Patient thinks that she may have been told that she has PVCs in the past, but during previous ER visits I do not see an associated ECG and no
mention of PVCs. Her last alcohol rehab was in [place], so could have been a hospital out there.
PMH:
ETOH use disorder
HTN
Hypothyroidism
Hypomagnesemia
Past Medical History
Past Medical History: Other (in HPI)
Past Surgical History: None
Social History
Tobacco: Non-Smoker
Alcohol: Other (ETOH use disorder, had been living in sober house and relapsed just prior to admission)
Drug: Other (denies any illicit drug use)
Personal:
Living: Other (sober living/jail house)
Employment: Employed (works in the [employer] dept at [employer])
Family History
Family History: CAD (father with CT in his 80s) and Other (brother with COVID during the pandemic)
Allergies / Home Medications
Allergy/AdvReac Type Severity Reaction Status Date / Time
No Known Allergies Allergy Verified 03/26/23 07:35
�Medication �Instructions �Recorded �Confirmed �Type
clonidine HCl 0.1 mg tablet 0.1 mg PO BID Blood Pressure 08/30/24 08/30/24 History
gabapentin 400 mg capsule 400 mg PO TID Pain 08/30/24 08/30/24 History
naltrexone microspheres 380 mg 380 mg IM QMONTH SUBSTANCE USE 08/30/24 08/30/24 History
intramuscular suspension,extended DISORDER
release (Vivitrol)
prazosin 2 mg capsule 2 mg PO HS Mental Health/Anxiety 08/30/24 08/30/24 History
quetiapine 300 mg tablet 300 mg PO HS Mental Health/Anxiety 08/30/24 08/30/24 History
ropinirole 2 mg tablet 2 mg PO HS Mental Health/Anxiety 08/30/24 08/30/24 History
Review of Systems
-
History Source: Patient
All other systems: Negative unless noted
Physical Exam
Vital Signs
Temp Pulse Resp BP Pulse Ox
98.1 F 92 19 166/95 92
09/02/24 08:26 09/02/24 11:00 09/02/24 11:00 09/02/24 11:00 09/02/24 10:00
GEN: NAD. AAOx3
HEENT: EOMI, mmm
LUNGS: RA. Clear anterolaterally without wheeze or rales
CV: SR with PVCs and occasionally bigeminy on tele. Reg with ectopy, S1/S2, no murmur
ABD: soft, BS+, NT, ND
EXT: No clubbing, cyanosis, lesions or edema B/L
NEURO: Gross non-focal
SKIN: Warm, dry and pink. No rash
Lab Results
09/02/24 04:13
09/02/24 04:13
Troponin I 0.017 ng/ml 08/30/24 12:36
Impression / Plan
-
PCP: None
Card: None
Impression:
Admitted with change in mental status and ETOH use disorder 08/30/24
Ethyl alcohol and isopropyl alcohol ingestion prior to admission
ETHO use disorder
ETOH withdrawal
Alcoholic ketoacidosis
PVCs and bigeminy
HTN
Hypothyroidism
Hypomagnesemia
Echo 09/01/2024: TDS, normal LV size and function, no gross WMA, EF 60 to 65%, grossly normal RV size and function, no significant valve disease
Plan:
-Patient came to the ER on Friday with lethargy and change in mental status and was admitted with EtOH use disorder and isopropyl alcohol ingestion and cardiology is now consulted for PVCs and bigeminy. Patient was previously in the ER 03/2023 with
EtOH use disorder and was sent to rehab at that time. 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 She said that a week ago she had a trip and fall
and landed on her right side and although she was injured she was incredibly embarrassed and stood up quickly and pretended like nothing was wrong. She was also afraid that if she told anyone that she fell and was hurt that she would be fired. She
had increasing pain and she says to numb the pain she began drinking alcohol again. She also has a lot of stress in her family as her mother is on hospice and she feels like she cannot be part of the process. Patient was admitted after she was
found on the floor of her sober living home surrounded by bottles of mouthwash and a bottle of isopropyl alcohol. Shortly after admission patient was moved to ICU and placed on a Precedex drip for withdrawal and severe agitation, but that is off
now and she is able to communicate with me and is tearful at times. Patient denies any palpitations. Patient thinks that she may have been told that she has PVCs in the past, but during previous ER visits I do not see an associated ECG and no
mention of PVCs. Her last alcohol rehab was in [place], so could have been a hospital out there.
-ECG from admission reviewed by me and looks like sinus tachycardia. ECG from 09/01/2024 also reviewed by me and looks like SR with frequent PVCs. Telemetry reviewed by me shows periods of bigeminy and other times SR with frequent PVCs.
-Patient is asymptomatic with PVCs. EF is preserved on echo.
-Due to asymptomatic nature of PVCs and preserved EF would not start BB/CCB
-Magnesium level 1.6. Magnesium rider was given earlier this morning. Will add magnesium oxide 500 mg BID, orders placed by me.
-Troponin was normal on admission and no WMA or ischemic changes on ECG
-Urine toxicology was positive for methamphetamine but psychiatry believes this could be a false positive
-Outpatient dose of clonidine 0.1 mg BID was increased to 0.2 mg BID for increased BP this admission.
--- NOTE | 2024-09-02 11:50 | CON.MD ---
Consultation - Medical
-
patient seen chart reviewed. spoke with nursing and pharmacy. the patient is a 59 year old woman who was living in a safe house who was brought here to er for change in mental status. she reports she had been sober for eleven months but then
succumbed to sad feelings about a number of issues in her life. her mother is ill and on hospice. her sister is poa and will not allow her to speak to mom or give her information. she was also struggling with the milieu in which she resided knowing
she had a 'nice house' to live in and was able to be there. 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 sobriety had been difficult for
her. she has been to numerous rehabs and other programs over the years and has a long hx of etoh use disorder. she also has a psych hx . she has been dx bipolar in the past and recently effexor was tapered and id'ed. she believes this was a
mistake. she says gabapentin was started instead of effexor (they do not have the same indication. she is currently taking gabapentin 400 mg tid. she was also taking seroquel 300 mg q hs now 50 mg qid. the patient was dx as bipolar in the past.
she does have hx of inc energy decr need for sleep and racing thoughts in the past and believes she has experienced jermain darius. her most recent etoh intake was 'a agrawal' in which she consumed the only etoh available to her in the form of rubbing
alcohol and mouthwash. she denied the use and abuse of other substances but 'LOVED' cannabis but could not use it bc she was in a care home house. the tox was + for meth and tca but these are often false + she denied using other substances. she
struggled to sleep. appetite was okay. she has never made a suicide attempt and had no thoughts of harming herself. currently
past psych hx many admits for etoh wd and rehab. she was on the dual dx unit at in the past. she has engaged in iop programs for substance abuse as well.
medical hx patient w hx htn hypothroid gout rls (takes ropinorole ) mild anemia. slight inc liver enzymes fatty liver ecg back and forth w evidence of lat and inf infarcts last qtc 477 initial ecg had prolonged qtc. noted to have bi and
trigeminy while her and as i sat w her saw many pvc's on monitor wbc elev 15.3 patient did have some periods of agitation and for a while taking precedex currently phenobarb taper and msas tsh is okay
substance abuse see above
fh several of her gp's etoh abusers mom w dep anxiety
social resides in care home house one son in his 30's who is supportive mom is dying and patient unable to speak to her see above. was in [employer] in where she studied [employer]. now works at [employer] in [employer] need to
ask re trauma hx
mse alert ox3 cooperative speech and thought process nl affect appropriate mood is sad denies si aver intelligence insight judgment impaired
dx etoh use d.o severe likely underlying bipolar affective disorder r/o ptsd hx cannabis use
plan continue w phenobarb taper and msas. left seroquel as is for now but a mood stabilizer with antidep properties and which does not cause weight gain would be better eg latuda. continue neurontin which can help w anxiety. continue w vivitrol
as out patient. not clear when due but it is not formulary here. as patient is not able to return to recovery house will ask bcares to see her and make recommendations. suggested continued telemetry to nursing given pvc issue. cardiology is being
consulted. follow ecg given seroquel will follow
--- NOTE | 2024-09-02 12:53 | PTCARENOTE ---
seen by speech therapy, pt is an impulsive eater. Desats on room air to 83%, awakened, oxygen back on briefly. Presently on room air, pulse ox 95%. Awaiting tele bed.
--- NOTE | 2024-09-02 13:35 | PN.CDI ---
CDI
- -
CDI:
Physician Documentation Request
Admit Date: 08/31/24 08:15
Dear Doctor Layla,
Patient being evaluated for altered mental status suspected due to alcohol withdrawal.
Patient found unresponsive at home
Patient currently on 2L
08/31 Nursing note states 'Pt started to desat (as low as 78%). Pt placed on 6LNC and repositioned and recovered to 94%'
Please clarify which of the following accurately represents the patient's respiratory status:
Acute respiratory failure -please indicate type
Hypoxia
Other
Additional information for Respiratory Failure:
Recognized criteria for Respiratory Failure (Source: [facility] Mar 2013)
ABGs: (1 or more) Symptoms Please indicate type if known
1. p)2 <60 or RA SPO2 <91% on RA 1. Tachypnea, SOB, dyspnea Hypoxic
2. pCO2 50 and pH <7.35 2. Use of accessory muscles Hypercapnic
3. pO2 decrease of pCO2 increase by 3. Pallor or cyanosis Hypoxic and Hypercapnic
10 mmHg from baseline if known 4. Anxiety or restlessness Unable to determine
5. Unable to speak in full sentences
Supplemental O2 of > 40% (5LPM) Intubation is not required
Use of terms such as suspected, likely, concern for, or probable (associated with a specific diagnosis that is being evaluated, monitored, or treated as if it exists) are acceptable and can be coded in the inpatient setting, when documented at the
time of discharge.
Thank you,
Marquita Mcbride RN, BSN
CDI Specialist
tiger text
Please use your independent medical judgment in providing your response.
[2024-09-02] MEDS: MAGNESIUM OXIDE 500 MG PO ×2 (13:41→20:30)
--- NOTE | 2024-09-02 16:20 | CM ---
Patient seen at bedside with physicians earlier and [facility] Patient provided contact information for requested contacts [phone] and Ramya [phone] and after discussion patient in agreement to allow BCAJONATHAN to
talk to Marquita and any providers of care. CM will send referrals to for mental health; [facility] but he does not want to go to [place]. CM will continue to follow for discharge planning needs.
Plan; Psych placement
[2024-09-02] MEDS: LOVENOX 40 MG SC (17:13)
--- NOTE | 2024-09-02 18:08 | PTCARENOTE ---
ambulated to bathroom, explained rationale for slippers/non-skid soles. removed monitor and ambulated to plug in phone, bed alarm remains on/chair alarm. restless. warm. room cooled. No other change. Head Paper Tester in to visit, left bible. Readers
obtained from volunteer desk, pt very appreciative and talkative.
--- NOTE | 2024-09-02 18:23 | PTCARENOTE ---
ambulated in hallway with RW. Gait steady. In/Out of bathroom, much improved from earlier today.
[2024-09-02] MEDS: VITAMIN B1 100 MG PO (20:30)
[2024-09-02] MEDS: MINIPRESS 2 MG PO (22:10)
[2024-09-02] MEDS: REQUIP 2 MG PO (22:14)
[2024-09-02] MEDS: LUMINAL 32.4 MG PO (22:14)
--- NOTE | 2024-09-02 22:37 | PTCARENOTE ---
Received patient in bed AAOx3 and able to make her needs known. Plan of care for the shift reviewed with the patient. Sinus rhythm-sinus tachy on the monitor with trigeminy. MAEx4. The patient verbalizes feeling extreme hunger and that she did not
have 'anything to eat today.' Crackers were provided to the patient and turkey sandwich provided. SpO2 at 95% on room air. +BS. The patient gets oob with minimal assist. Utilizes the call snyder and walker appropriately. Bed alarm in use.
--- NOTE | 2024-09-02 23:41 | PTCARENOTE ---
Patient transported to room 410-1. Assisted the pt out of ICU bed. Pt ambulated to her new bed. RN updated.
[2024-09-03] MEDS: TYLENOL 650 MG PO ×2 (00:35→08:58)
[2024-09-03 03:00] VITALS: BP 163/80
[2024-09-03] MEDS: SEROQUEL 50 MG PO ×2 (06:16→12:47)
[2024-09-03 07:23] LABS: % Basophils 0.3 % (0-2); % Eosinophils 6.5 % (0-6); % Immature Granulocytes 0.5 % (0-0.5); % Lymphocytes 26.5 % (20.5-51.1); % Monocytes 7.4 % (1.7-9.3); % Neutrophils 58.8 % (42.2-75.2); Absolute Eosinophils 0.4 10^3/uL (0-0.7); Absolute Lymphocytes 1.8 10^3/uL (1.2-3.4); Absolute Monocytes 0.5 10^3/uL (0.1-0.6); Absolute Neutrophils 3.9 10^3/uL (1.4-6.5); Hematocrit 37.9 % (37.0-47.0); Hemoglobin 12.9 g/dL (12.0-16.0); Mean Corpuscular Hgb 29.9 pg (27.0-31.0); Mean Corpuscular Volume 87.9 fL (81.0-99.0); Mean Platelet Volume 8.8 fL (7.4-10.4); Nucleated Red Blood Cells % 0 %; Platelet Count 155 10^3/uL (130-400); Red Blood Cell Count 4.31 10^6/uL (4.20-5.40); Red Cell Dist. Width 13.5 % (11.5-14.5); White Blood Cell Count 6.6 10^3/uL (4.8-10.8)
[2024-09-03 07:30] VITALS: BP 164/107
[2024-09-03 07:44] LABS: Blood Urea Nitrogen 17 mg/dl (7-17); Calcium 9.2 mg/dl (8.4-10.2); Carbon Dioxide 33 mmol/L (22-30); Chloride 100 mmol/L (98-107); Estimated Creatinine Clearance 123 ml/min; Glucose 121 mg/dl (70-99); Magnesium 1.9 mg/dl (1.6-2.3); Potassium 3.9 mmol/L (3.5-5.1); Sodium 138 mmol/L (135-145); eGFR > 60.00
[2024-09-03] MEDS: NEURONTIN 400 MG PO ×2 (08:58→15:45)
[2024-09-03] MEDS: FOLVITE 1 MG PO (08:58)
[2024-09-03] MEDS: MAGNESIUM OXIDE 500 MG PO (08:58)
[2024-09-03] MEDS: CATAPRES 0.2 MG PO (08:58)
[2024-09-03] MEDS: VITAMIN B1 100 MG PO (08:58)
[2024-09-03] MEDS: LUMINAL 32.4 MG PO ×2 (08:58→15:45)
[2024-09-03 11:28] VITALS: BP 184/96
--- NOTE | 2024-09-03 12:54 | W.PN.UPDATE ---
Update Note
Progress Note Update
patient seen chart reviewed. discussed with nursing the patient is doing reasonably well vis a vis etoh wd. she shows little in the way of etoh wd if anything. no sweating no tremulousness. bp is still elevated but my sense is this is due to
primary hypertension rather than etoh wd. she has a lot on her mind...mother's illness, sister's refusal to allow her to talk to mom. she continues to grieve the loss of her bro from covid and father about four months later. she feels guilty about
relapse . she said she was trying to get the pain to stop and she recognizes the need for sobriety. we discussed again that my working dx remains bipolar. she mentioned adhd bc her thoughts go all over the place. i explained to her that w bipolar
disorder one's mind does race and has a hard time w focus as well so she may not have adhd. we discussed the use of latuda. her concern was that she could not afford it. it went off patent in 2022 and can be had on good rx for fifty bucks for a
90 day supply of 40 mg. unclear what dose we will end up at but even at 80 mg one pill would suffice so cost will not be much higher. she will hopefully be ma eligible if she cannot go back to her job. we discussed disposition. i think she would
be okay for in pt rehab although the [facility] is suggest dual dx. i could go either way. i do think she is bipolar and that she is rather mood labile. cm will be looking into this. phenobarb will end tonight one day early as it induces the
enzyme which degrades latuda and in my opinion she is pretty much out of the risk for wd. yanick murray. will follow
--- NOTE | 2024-09-03 14:44 | CM ---
Addendum entered by Brunilda Lama 09/03/24 15:32:
Patient accepted for transfer to [facility]. awaiting confirmation of insurance coverage.
Addendum entered by Brunilda Lama 09/03/24 14:45:
CM called to [facility], update provided. await facility response.
Original Note:
Patient seen at bedside and referral sent to [facility] following patient discussion with Pavel from [facility], await response. CM will continue to follow for discharge planning needs.
Plan; referral for [facility], needs placement
[2024-09-03 15:12] VITALS: BP 201/118
--- NOTE | 2024-09-03 15:30 | W.PN.HOSP.TC ---
Addendum entered and electronically signed by Shanika Mendoza MD 09/03/24 17:21:
I saw and evaluated the patient independently. I reviewed the resident�s note and agree with findings and plan as documented by Dr. Rich.
GENERAL: well developed, well nourished, female in no apparent distress
HEENT: NC/AT
HEART: regular rate and rhythm, +S1, +S2
LUNGS: clear bilaterally
ABDOM: soft, nontender, nondistended, + bowel sounds
EXT: no cyanosis, clubbing, or edema
NEUROLOGIC: sedated
Altered mental status suspected due to alcohol withdrawal with + urine drug screen + ETOH level-- needed precedex now off--Elevated GGT, alcohol 0.1, positive beta hydroxybutyrate, ingestion of isopropyl alcohol, mouthwash--elevated serum osmolal
gap--phenobarbital taper started--thiamine/folate--MSAS protocol, ativan as needed--apprec psych, [facility]ares
Acute hypoxic respiratory failure to insufficiency--off O2--no PE on CT, no pna on CT--ABG reviewed
New onset of cough--resolved--Covid/flu negative--Increased risk for aspiration pneumonia--WBC count now normal--hold on ABX--possible bronchitis, all resolved--portable CXR with likely atelectasis from sedation--not clinically in heart failure or
PNA--speech when more awake--improved with tessalon
Anxiety/depression--Hold oral home medication due to sedation--restart as per psych
Restless leg syndrome--Hold oral ropinirole and gabapentin due to sedation--restart as able
essential HTN--increased clonidine--addding norvasc--PRN hydralazine
DVT proph
code status --Full code
OK for d/c to [facility]
Original Note:
Today's Communication/Plan
-
Plan to discharge to Psych facility([facility]) today. SHe is medically stable, vitals are unremarkable, on RA, AOX3.
Continue all other home medications.
Assessment / Plan
Assessment / Plan
Impression
Altered mental status suspected due alcohol withdrawal with + urine drug screen
Acute hypoxic resp insufficiency
New onset of cough
Anxiety
Depression
Probable restless leg syndrome
PLAN
Altered mental status suspected due alcohol withdrawal with + urine drug screen
Hemodynamically stable-not requiring pressors
Off sedation
Elevated serum osmolar gap
Elevated GGT, alcohol 0.1, positive beta hydroxybutyrate, maybe be drinking again and likely withdrawal.
Continue MSAS protocol.
Continue thiamine, folic acid, phenobarb protocol.
BCares for alcohol dependence.
Patient is medically stable, on RA, alert oriented and awake. Discharge plan to psych facility.
Acute hypoxic respiratory insufficiency
On RA
ABG shows respiratory acidosis with normal pH
Elevated serum osmolar gap
Sinus tachycardia-- resolved
EKG shows frequent premature ventricular complexes
Persistently tachycardic since admission
Cardiology cleared the patient.
New onset of cough--improved/resolved
Increased risk for aspiration pneumonia
Repeat chest x-ray shows bibasilar atelectasis
COVID and flu negative
Speech therapy eval - regular diet
Anxiety/depression
Continue home medications
Restless leg syndrome
Continue home medications
Full code
Anticipated Discharge: Today
Subjective/Interval History
-
Date of Service: September 03, 2024
no overnight events
Objective Data
-
Labs:
Laboratory Results
09/03/24
07:03
WBC 6.6
Hgb 12.9
Hct 37.9
Plt Count 155
Sodium 138
Potassium 3.9
Chloride 100
Carbon Dioxide 33 H
BUN 17
Creatinine 0.6
Glucose 121 H
Calcium 9.2
Vital Signs:
Vital Signs
Temp Pulse Resp BP Pulse Ox
97.6 F 69 18 184/96 97
09/03/24 11:28 09/03/24 11:28 09/03/24 11:28 09/03/24 11:28 09/03/24 11:28
I&O
09/02/24 09/03/24 09/04/24
06:59 06:59 06:59
Intake Total 1762.3 / 1762.3 1730 / 1730 240 / 240
Output Total 3700 / 3700 1100 / 1100
Balance -1937.7 / -1937.7 630 / 630 240 / 240
Review of Systems
-
All other systems: Reviewed and negative
Physical Exam
-
General: Comfortable and Other (competent, answering all questions, smiling, on RA)
HEENT: Normocephalic and Atraumatic
Respiratory: Clear to Auscultation
Cardiac: Regular Rhythm and S1/S2
GI: Soft, Nontender and Nondistended
Musculoskeletal: No Edema
Skin: Warm and Dry
Neuro: AO x 3
Psych: Calm
Data Reviewed
-
Labs: Labs Reviewed by me and Discussed with Physician
[2024-09-03] MEDS: APRESOLINE 5 MG IV (15:45)
[2024-09-03] MEDS: MOTRIN 200 MG PO (15:45)
--- NOTE | 2024-09-03 18:28 | W.DCSUMMARY ---
Addendum entered and electronically signed by Shanika Mendoza MD 09/04/24 07:38:
Read, reviewed, and agree. See same day progress note for additional details. Time spent coordinating care, DC planning, review of DC plan of care with resident, transition of care, review of records in EMR, med rec, consults, notes, d/w
consultants, nursing, family, and CM = 32 minutes
Blood pressure medicines were adjusted throughout her hospital stay including adding amlodipine and increasing clonidine to 0.2 mg twice daily.
Original Note:
Discharge Summary
Discharge Data
Date of Admission: 08/31/24
Date of Discharge: 09/03/24
-
Pending Results: No
Hospital Course
Discharging Physician : Dr Rolan Rich, Dr Shanika Mendoza
Disposition : [facility]
Primary care physician : Unknown
Principal Discharge diagnosis :
Altered mental status suspected due alcohol withdrawal with + urine drug screen
Acute hypoxic resp insufficiency
Chronic Discharge diagnosis :
Chronic Alcohol dependence
Bipolar disorder
Anxiety/depression
Restless leg syndrome
Hospital Course :
59-year-old female presented with alcohol intoxication, minimally responsive. She soon became very agitated and was in alcohol withdrawal. she was found with empty bottles of isopropyl alcohol and Ethyl alcohol. She was admitted to ICU for
sedation and agitation. Urine drug screen positive EtOH level, tricyclics, positive beta hydroxybutyrate butyrate. Patient was started on phenobarb taper, on Precedex as needed for agitation. She was also requiring 5 to 6 L of oxygen for
hypoxic respiratory failure. She did have a new onset of cough however negative for COVID and flu, portable chest x-ray revealed likely atelectasis from sedation. She was also tachycardic. Patient's mental status improved over the next 2 to 3
days of hospitalization. She became more alert, responsive, off sedation and on RA. On the day of discharge she was hemodynamically stable, BP was mildly elevated, all other vitals were stable. Patient is being discharged to psychiatry facility.
Recommend [facility]ares for alcohol dependence.
Important imaging findings :
08/30/[address]
No acute findings
08/31/24 Chest x-ray
Mild bibasilar atelectasis
08/30/24 CT abdomen/pelvis
There is no pulmonary embolism centrally. Segmental arteries are more difficult to assess due to limitations of contrast. There is no evidence of a pulmonary mass or consolidation There is fatty infiltration of the liver
There is diverticulosis but no evidence of diverticulitis
Procedure findings : none
Discharge Plan
-
Patient Disposition: Psych Facility
Discharge Diagnosis/Procedures: Altered mental status suspected due alcohol withdrawal with + urine drug screen
Acute hypoxic resp insufficiency
New onset of cough-- resolved
Diet: Regular
Activity: No restrictions
Driving Restrictions: As prior to admission
Bathing Restrictions: None
Referrals:
Renetta Plaza PA-C [Specified Professional Personl] - 10/12/24 2:00 pm (You have a cardiology follow up appointment at the [facility] office. Please call with questions. )
UNKNOWN,NO INTERVIEW [Family Provider] -
Additional Discharge Medication Instructions: Continue all home medication
BCares for alcohol dependence
Prescriptions:
Continued
clonidine HCl 0.1 mg Tablet
0.1 mg PO BID
quetiapine 300 mg Tablet
300 mg PO HS
gabapentin 400 mg Capsule
400 mg PO TID
ropinirole 2 mg Tablet
2 mg PO HS
prazosin 2 mg Capsule
2 mg PO HS
Vivitrol 380 mg Suspension,Extended Rel Recon
380 mg IM QMONTH
Discharge Orders:
Discharge Patient (As Directed); Ordered 09/03/24
Ordered By: Rolan Rich
Discharge Date and Time
Discharge Date/Time: 09/03/24 17:17
Print Language: LATVIAN
== END 2024-09-03 17:17 | DRG 896 ==
LOC: 4 EAST ACU 08:15
PROVIDERS: Emergency Medicine; Nurse Practitioner Family; Nurse Practitioner Gerontology; Physician Assistant; Student in an Organized Health Care Education/Training Program; ADMITTING PHYSICIAN Internal Medicine; ATTENDING PHYSICIAN Internal Medicine; CONSULT PHYSICIAN Internal Medicine; CONSULT PHYSICIAN Internal Medicine Cardiovascular Disease; CONSULT PHYSICIAN Psychiatry & Neurology Psychiatry; EMERGENCY PHYSICIAN Student in an Organized Health Care Education/Training Program
PROC: 5A09357 Assistance with Respiratory Ventilation, Less than 24 Consecutive Hours, Continuous Positive Airway Pressure (ICD-10-PCS; 2024-09-01)
DX: F10.229 Alcohol dependence with intoxication, unspecified (principal); G92.8 Other toxic encephalopathy; J96.01 Acute respiratory failure with hypoxia; E87.29 Other acidosis; J98.11 Atelectasis; F10.239 Alcohol dependence with withdrawal, unspecified; F32.A Depression, unspecified; F41.9 Anxiety disorder, unspecified; E03.9 Hypothyroidism, unspecified; I10 Essential (primary) hypertension; M10.9 Gout, unspecified; R11.2 Nausea with vomiting, unspecified; R19.7 Diarrhea, unspecified; F19.10 Other psychoactive substance abuse, uncomplicated; D72.829 Elevated white blood cell count, unspecified; R73.9 Hyperglycemia, unspecified; E66.9 Obesity, unspecified; G25.81 Restless legs syndrome; R82.4 Acetonuria; Y90.0 Blood alcohol level of less than 20 mg/100 ml; G47.33 Obstructive sleep apnea (adult) (pediatric); K76.0 Fatty (change of) liver, not elsewhere classified; K57.30 Diverticulosis of large intestine without perforation or abscess without bleeding; E87.6 Hypokalemia; E83.42 Hypomagnesemia; I49.3 Ventricular premature depolarization; W01.0XXA Fall on same level from slipping, tripping and stumbling without subsequent striking against object, initial encounter; Y93.9 Activity, unspecified; Y92.512 Supermarket, store or market as the place of occurrence of the external cause; Y99.0 Civilian activity done for income or pay; Z68.36 Body mass index [BMI] 36.0-36.9, adult; Z11.52 Encounter for screening for COVID-19; Z82.49 Family history of ischemic heart disease and other diseases of the circulatory system
CPT/HCPCS: 36600; 70450; 71045; 71275; 72125; 74177; 80048; 80053; 80143; 80179; 80306; 80307; 81003; 81015; 82010; 82077; 82140; 82550; 82805; 82977; 83605; 83735; 83930; 83935; 84100; 84443; 84484; 85025; 85027; 87040; 87070; 87502; 87811; 92526; 92610; 93005; 93307; 94660; 96360; 99285; Q9957; Q9967